=== PATIENT | male | born 1960 | race Caucasian/White ===

== ENCOUNTER 2023-01-15 09:11 | Inpatient (IN) ==
[2023-01-15] MEDS ORDERED: MoRPHine SULFATE 2 MG/ML CARP IV STA (09:38)
[2023-01-15] MEDS ORDERED: NITROGLYCERIN 2% OINTMENT 30GM TUBE EXT STA (09:38)
[2023-01-15] MEDS: SODIUM CHLORIDE 0.9% 500 ML IV SCH ×2 (09:46→17:24)
--- NOTE | 2023-01-15 09:49 | Emergency Department Note ---
Impression & Plan Unstable angina, Chest pain, OLMSTEAD (dyspnea on exertion), Abnormal ECG ED Provider Note ED Provider Note NAME: MAG MEDEROS AGE:62 SEX: Male : 1960 ARRIVES VIA: Private vehicle INFORMANT: Patient ED PROVIDER(s): Josie Jaramillo DO CHIEF COMPLAINT: Persistent chest pain HPI: This is a 62-year-old male presents emerged department due to concern for persistent chest pain which began last night around midnight. Patient states between the hours of midnight and 9 AM he took a total of 6 nitro at home. He states he was taking these approximately every hour and a half as they would provide some temporary relief however then his symptoms would return. He describes a sense of chest tightness across his entire bilateral chest wall with accompanying shortness of breath with any exertion. He denies diaphoresis, l ightheadedness, nausea or vomiting, or difficulty breathing. Patient with significant cardiac history including prior quadruple bypass performed at [facility] a little less than 3 years ago. Patient did see Dr. Curry of cardiology last week in the office states his carvedilol was increased. He had been having exertional symptoms prior to this episode however last night symptoms woke him up from sleep. No recent fevers, chills, or URI symptoms. He states he does occasionally have leg swelling however this seems to resolve with elevation of the legs. PAST MEDICAL HISTORY:See Below PAST SURGICAL HISTORY:See Below FAMILY HISTORY:See Below SOCIAL HISTORY:See Below HOME MEDICATIONS:See Below ALLERGIES:See Below VITALS:See Below PHYSICAL EXAMINATION: GENERAL: alert, well appearing, well nourished, no distress, non-toxic EYE EXAM: normal conjunctiva, PERRL and EOM's grossly intact OROPHARYNX: no exudate, no erythema, lips, buccal mucosa, and tongue normal and mucous membranes are moist NECK: supple, no nuchal rigidity, no adenopathy, non-tender LUNGS: Clear to auscultation. Normal chest wall mechanics, no w/r/r HEART: no murmurs, S1 normal and S2 normal ABDOMEN: abdomen soft, non-tender, normo-active bowel sounds, no masses, no rebound or guarding. BACK: Back is symmetrical on inspection and there is no deformity, no midline tenderness, no CVA tenderness. SKIN: no rashes, petechiae, orbruising UPPER EXTREMITIES: upper extremities are grossly normal. FROM, nml pulses b/l. LOWER EXTREMITIES: No pitting edema. FROM, nml pulses b/l. NEURO EXAM: Normal sensorium, cranial nerves II-XII grossly intact, normal speech, no facial droop,nogross weakness of arms, no gross weakness of legs. Gross sensation intact. No ataxia. Vital Signs: reviewed and remarkable Differential Diagnosis: Differential diagnoses includes but is not limited to acute coronary syndrome, pericarditis, pulmonary embolus, aortic dissection, pneumonia, pneumothorax, musculoskeletal,GERD, gi bleed, perf dehydration MEDICAL DECISION MAKING: This is a 62 yo male with significant cardiac hx who presents due to persistent chest pain and shortness of breath. Patient afebrile and VS stable. Labs drawn and sent, IV established, EKG and cxr performed and interpreted by me at bedside. Patient's EKG abnormal however no old immediately available for comparison. Patient with recent office visit to cardiology and this was reviewed at bedside and cardiology contacted given significant history and story suggestive of unstable angina. Patient given nitro and morphine for pain. After additional discussion with cardiology, decision made to begin on heparin and brilinta in preparation for cardiac cath. No criteria for Heart Alert, however given symptoms, Dr. Curry spoke with interventional cardiology. Patient and updated on results. He remained hemodynamically stable while in the ER. Consultation(s): 0950: Discussed with Dr. Curry. Recommends admission. Will review EKG and decide on heparin. 1006: Discussed with Dr. Curry again. 1030: Discussed with Dr. Booker. ER Treatment Provided: See below Diagnostics Interpreted By Me: -ECG: Normal sinus at 79, ST depression noted in 1, aVL, V5, V6, T wave inversions noted in 3, aVF, and V3, normal axis, normal QRS, QTc slightly prolonged at 488 -Cardiac Monitoring: An order was placed for continuous cardiac monitoring. The monitor shows a rate of 80 with normal sinus rhythm. -Laboratory studies: As stated above and show below. -Imaging studies: X-ray Chest: A single view study of the chest was reviewed and was negative for cardiomegaly, focal infiltrate, effusion, pulmonary edema, or wide mediastinum. Triage Nursing Note Reviewed Prior/Outside Records Reviewed - prior cardiology office visit Critical Care: Critical care of 42 min performed to assess and manage high likelihood of life- threatening unstable angina, involving labs and imaging performed with assessment to evaluate chest pain and OLMSTEAD diagnosis with frequent reassessment. This time includes bedside time, treatment discussions with patient/family/consultants, documentation time and excludes procedure time. Past Med/Surg History Medical History Asthma Diabetes mellitus, type 2 Dyslipidemia Former tobacco use HTN (hypertension) Surgical History History of coronary artery bypass graft April 2021 Social History Smoking Status: Former smoker Tobacco Type: Cigars Second Hand Exposure: No; Do You Dip or Chew Tobacco: No; Tobacco Cessation Education Requested by Patient: No Hx Alcohol Use: No Hx Substance Use: No Preferred Language: Georgian Grappler Required: No Beliefs That Will Affect Care: None Current Living Situation: Spouse Other Information That Helps Us Care for You: No Feels Safe at Home: Yes Safety Concerns: Feels Safe At This Time Assistive Devices: Denture - Upper, Glasses and Hearing Aid - Bilateral Allergies Allergies Allergy/AdvReac Type Severity Reaction Status Date / Time atorvastatin [From Lipitor] Allergy Verified 01/08/23 10:20 mold Allergy Verified 01/08/23 10:20 cedarwood AdvReac Intermediate Difficulty Verified 01/08/23 10:20 Breathing Home Meds Home Medications Medication Instructions Recorded Confirmed aspirin 81 mg chewable tablet 81 mg PO DAILY 07/12/21 01/15/23 clopidogrel 75 mg tablet (Plavix) 75 mg PO DAILY 07/12/21 01/15/23 omeprazole 20 mg capsule,delayed 20 mg PO DAILY 07/12/21 01/15/23 release rosuvastatin 20 mg tablet (Crestor) 20 mg PO HS 07/12/21 01/15/23 spironolactone 25 mg tablet 12.5 mg PO DAILY 07/12/21 01/15/23 Ligaplex PO DAILY 08/09/22 01/08/23 melatonin 10 mg capsule 10 mg PO HS PRN Sleep 08/09/22 01/15/23 albuterol sulfate 90 mcg/actuation 2 puff inhalation Q6H PRN Wheezing 11/27/22 01/15/23 aerosol inhaler lisinopril 10 mg tablet 10 mg PO HS 11/27/22 01/15/23 metformin 500 mg tablet 500 mg PO TID 11/27/22 01/15/23 [id number] 1 tab PO DAILY 11/27/22 01/15/23 tablet (Multivitamin 50 Plus tablet) carvedilol 12.5 mg tablet See Rx Instructions .Route .COMPLEX 01/15/23 01/15/23 Previous Rx's Medication Instructions Recorded nitroglycerin 0.4 mg sublingual 0.4 mg sublingual Q5M PRN chest 11/23/22 tablet pain #75 tabs Results & Data (ED) Vital Signs Vital Signs - 24 hr 01/15/23 09:24 01/15/23 09:26 01/15/23 09:25 Temperature 36.7 C Temperature Source Oral Pulse Rate 78 78 79 Pulse Rate from SpO2 Sensor 80 Pulse Rhythm Regular Pulse Strength Normal Respiratory Rate 18 19 Respiratory Effort / Characteristics Non-Labored Spontaneous Respiratory Depth Normal Blood Pressure 132/75 Blood Pressure Mean 94 Blood Pressure Position Sitting Pulse Oximetry 98 97 Oxygen Delivery Method Room Air Nasal Cannula Sepsis Recent Fever Within 48 Hours No Sepsis New/Unexplained Change in Mental Status N/A Sepsis Action Taken by Nursing No Action Required 01/15/23 09:30 01/15/23 09:36 01/15/23 09:36 Temperature Temperature Source Pulse Rate 85 78 Pulse Rate from SpO2 Sensor 77 Pulse Rhythm Pulse Strength Respiratory Rate 14 17 Respiratory Effort / Characteristics Respiratory Depth Blood Pressure 138/80 Blood Pressure Mean 99 Blood Pressure Position Pulse Oximetry 99 Oxygen Delivery Method Sepsis Recent Fever Within 48 Hours Sepsis New/Unexplained Change in Mental Status Sepsis Action Taken by Nursing 01/15/23 10:00 01/15/23 10:00 01/15/23 10:30 Temperature Temperature Source Pulse Rate 73 Pulse Rate from SpO2 Sensor 73 Pulse Rhythm Pulse Strength Respiratory Rate 15 Respiratory Effort / Characteristics Respiratory Depth Blood Pressure 120/84 126/78 Blood Pressure Mean 96 94 Blood Pressure Position Pulse Oximetry 96 Oxygen Delivery Method Sepsis Recent Fever Within 48 Hours Sepsis New/Unexplained Change in Mental Status Sepsis Action Taken by Nursing 01/15/23 10:30 Temperature Temperature Source Pulse Rate 80 Pulse Rate from SpO2 Sensor 80 Pulse Rhythm Pulse Strength Respiratory Rate 18 Respiratory Effort / Characteristics Respiratory Depth Blood Pressure Blood Pressure Mean Blood Pressure Position Pulse Oximetry 98 Oxygen Delivery Method Sepsis Recent Fever Within 48 Hours Sepsis New/Unexplained Change in Mental Status Sepsis Action Taken by Nursing Laboratory Data 01/15/23 09:27 01/15/23 09:27 Lab Results 01/15/23 01/15/23 01/15/23 Range/Units 09:27 09:27 09:27 WBC 8.92 (4.8-10.8) K/ul RBC 5.07 (4.70-6.10) M/uL Hgb 14.3 (14.0-18.0) g/dl Hct 42.1 (42.0-52.0) % MCV 83.0 (80.0-100.0) fL MCH 28.2 (25.0-34.0) pg MCHC 34.0 (32.0-36.0) g/dL RDW Std Deviation 40.3 (36.4-46.3) fL RDW Coeff of Holley 13.4 (11.5-14.5) % Plt Count 200 (130-400) K/uL MPV 10.6 (9.4-12.4) fL Immature Gran % (Auto) 0.3 % Neut % (Auto) 54.6 % Lymph % (Auto) 30.7 % Piute % (Auto) 7.1 % Eos % (Auto) 6.5 % Baso % (Auto) 0.8 % Neut # (Auto) 4.87 (1.40-6.50) K/uL Lymph # (Auto) 2.74 (1.2-3.4) K/uL Piute # (Auto) 0.63 H (0.11-0.59) K/uL Eos # (Auto) 0.58 H (0-0.50) K/uL Baso # (Auto) 0.07 (0-0.2) K/uL Immature Gran # (Auto) 0.03 (0.01-0.20) K/uL PT (9.0-12.0) Seconds INR (0.9-1.1) Sodium 136 (136-145) mmol/L Potassium 4.7 (3.5-5.1) mmol/L Chloride 103 (98-107) mmol/L Carbon Dioxide 23 (21-32) mmol/L Anion Gap 10 (3-11) BUN 20 (6-23) mg/dl Creatinine 1.13 (0.6-1.4) mg/dl Est Cr Clr Drug Dosing 63.9 ml/min Est GFR ( Amer) 79.2 ml/min Est GFR (Non-Af Amer) 68.3 ml/min BUN/Creatinine Ratio 17.7 (10-20) Glucose 233 H (70-99(Fasting)) mg/dl Calcium 9.3 (8.6-10.3) mg/dl Magnesium 1.8 (1.7-2.4) mg/dl Total Bilirubin 0.5 (0.2-1.0) mg/dl AST 36 (13-39) U/L ALT 44 (7-52) U/L Alkaline Phosphatase 33 L (34-104) U/L Troponin I High Sens 274.4 H* (0-20) pg/ml Total Protein 7.0 (6.0-8.3) gm/dl Albumin 4.5 (3.4-5.0) gm/dl Globulin 2.5 (2.5-4.0) gm/dl Albumin/Globulin Ratio 1.8 (0.9-2) Lipase 45 (11-82) U/L TSH 2.538 (0.300-4.500) uIu/ml SARS-CoV-2, RNA, NAAT (NEGATIVE) 01/15/23 01/15/23 Range/Units 09:27 10:48 WBC (4.8-10.8) K/ul RBC (4.70-6.10) M/uL Hgb (14.0-18.0) g/dl Hct (42.0-52.0) % MCV (80.0-100.0) fL MCH (25.0-34.0) pg MCHC (32.0-36.0) g/dL RDW Std Deviation (36.4-46.3) fL RDW Coeff of Holley (11.5-14.5) % Plt Count (130-400) K/uL MPV (9.4-12.4) fL Immature Gran % (Auto) % Neut % (Auto) % Lymph % (Auto) % [place] % (Auto) % Eos % (Auto) % Baso % (Auto) % Neut # (Auto) (1.40-6.50) K/uL Lymph # (Auto) (1.2-3.4) K/uL [place] # (Auto) (0.11-0.59) K/uL Eos # (Auto) (0-0.50) K/uL Baso # (Auto) (0-0.2) K/uL Immature Gran # (Auto) (0.01-0.20) K/uL PT 11.6 (9.0-12.0) Seconds INR 1.1 (0.9-1.1) Sodium (136-145) mmol/L Potassium (3.5-5.1) mmol/L Chloride (98-107) mmol/L Carbon Dioxide (21-32) mmol/L Anion Gap (3-11) BUN (6-23) mg/dl Creatinine (0.6-1.4) mg/dl Est Cr Clr Drug Dosing ml/min Est GFR ( Amer) ml/min Est GFR (Non-Af Amer) ml/min BUN/Creatinine Ratio (10-20) Glucose (70-99(Fasting)) mg/dl Calcium (8.6-10.3) mg/dl Magnesium (1.7-2.4) mg/dl Total Bilirubin (0.2-1.0) mg/dl AST (13-39) U/L ALT (7-52) U/L Alkaline Phosphatase (34-104) U/L Troponin I High Sens (0-20) pg/ml Total Protein (6.0-8.3) gm/dl Albumin (3.4-5.0) gm/dl Globulin (2.5-4.0) gm/dl Albumin/Globulin Ratio (0.9-2) Lipase (11-82) U/L TSH (0.300-4.500) uIu/ml SARS-CoV-2, RNA, NAAT NEGATIVE (NEGATIVE) Administered Medications Carvedilol (Carvedilol 3.125 Mg Tab) 3.125 mg PO BIDM HEIKE Stop: 02/14/23 16:59 Last Admin: 01/15/23 17:27 Dose: 3.125 mg Documented By: ARVIND Insulin Aspart (Insulin Aspart Per Unit Charge) 0 units SC ACHS HEIKE Stop: 02/14/23 16:21 Last Admin: 01/15/23 20:56 Dose: 1 units Documented By: VERENA Co-signed By: JULIANNA Admin: 01/15/23 17:04 Dose: Not Given Documented By: Admin: 01/15/23 17:03 Dose: Not Given Documented By: ARVIND Insulin Glargine (Lantus Per Unit Charge) 7 units SQ BID HEIKE Stop: 02/14/23 20:59 Last Admin: 01/15/23 20:56 Dose: 7 units Documented By: VERENA Co-signed By: JULIANNA Melatonin (Melatonin 3 Mg Tab) 9 mg PO HS PRN PRN Reason: Sleep Stop: 02/14/23 16:34 Last Admin: 01/15/23 20:55 Dose: 9 mg Documented By: VERENA Discontinued Medications Carvedilol (Carvedilol 12.5 Mg Tab) 12.5 mg PO QDD HEIKE Stop: 02/14/23 16:44 Last Admin: 01/15/23 16:58 Dose: Not Given Documented By: ARVIND Fentanyl Citrate (Fentanyl Citrate Pf 100 Mcg/2 Ml Vial) Confirm Administered Dose 100 mcg .ROUTE .STK-MED ONE Stop: 01/15/23 11:29 Last Admin: 01/15/23 13:39 Dose: 25 mcg Documented By: MERLE Heparin Sodium (Porcine) (Heparin Sod (Porcine) 1000 Unit/Ml) 5,000 units IV NOW ONE Stop: 01/15/23 10:09 Last Admin: 01/15/23 10:29 Dose: 5,000 units Documented By: VERENA(2) Co-signed By: DORA Heparin Sodium (Porcine) (Heparin (Porcine) 1000 Unit/Ml 10 Ml (Histology Specialist Use Only)) Confirm Administered Dose 10,000 units .ROUTE .STK-MED ONE Stop: 01/15/23 11:29 Last Admin: 01/15/23 13:40 Dose: 4,500 units Documented By: MERLE Heparin Sodium/Sodium Chloride (Heparin In Nss Infusion 1000 Unit/500 Ml (2 U/Ml) Bag) Confirm Administered Dose 3,000 units IV .STK-MED ONE Stop: 01/15/23 11:30 Last Admin: 01/15/23 13:42 Dose: 3,000 units Documented By: MERLE Sodium Chloride (Nss) 500 mls @ 80 mls/hr IV .[id number] [facility] Stop: 02/14/23 09:44 Last Admin: 01/15/23 17:24 Dose: Not Given Documented By: Infusion: 01/15/23 17:24 Dose: 0 mls/hr Documented By: Admin: 01/15/23 09:46 Dose: 80 mls/hr Documented By: NANCY Midazolam HCl (Midazolam Hcl 1 Mg/Ml 2ml Vial) Confirm Administered Dose 2 mg .ROUTE .STK-MED ONE Stop: 01/15/23 11:30 Last Admin: 01/15/23 13:41 Dose: 1 mg Documented By: MERLE Morphine Sulfate (Morphine Sulfate 2 Mg/Ml Carp) 2 mg IV NOW STA Stop: 01/15/23 09:39 Last Admin: 01/15/23 09:48 Dose: 2 mg Documented By: NANCY Morphine Sulfate (Morphine Sulfate 4 Mg/Ml 1 Ml Carp\Vial) 4 mg IV NOW STA Stop: 01/15/23 10:31 Last Admin: 01/15/23 10:52 Dose: 4 mg Documented By: VERENA(2) Nicardipine HCl (Nicardipine Hcl Inj 2.5 Mg/Ml 10 Ml Amp) Confirm Administered Dose 25 mg .ROUTE .STK-MED ONE Stop: 01/15/23 11:29 Last Admin: 01/15/23 13:41 Dose: 25 mg Documented By: MERLE Nitroglycerin (Nitroglycerin 2% Ointment 30gm Tube) 1 inch EXT NOW STA Stop: 01/15/23 09:39 Last Admin: 01/15/23 09:48 Dose: 1 inch Documented By: NANCY Nitroglycerin/Dextrose (Nitroglycerin/D5w 100mcg/Ml 20ml Syr) Confirm Admin istered Dose 2,000 mcg .ROUTE .STK-MED ONE Stop: 01/15/23 11:30 Last Admin: 01/15/23 13:42 Dose: 2,000 mcg Documented By: MERLE Ticagrelor (Ticagrelor 90 Mg Tab) 180 mg PO ONE ONE Stop: 01/15/23 10:09 Last Admin: 01/15/23 10:28 Dose: 180 mg Documented By: AMB(2) Imaging Data Radiologist's Impression: Chest X-Ray 01/15/23 09:38 XR chest 1V portable CLINICAL HISTORY: Atypical chest pain. COMPARISON STUDY: Chest radiograph October 23, 2021. Chest CT July 12, 2020. FINDINGS: There are median sternotomy wires and mediastinal surgical clips. Lung volumes are normal. Lungs are clear. There is no pneumothorax or pleural effusion. Cardiac size is stable. Mediastinal contours are normal. There is no evidence for pulmonary edema. IMPRESSION: No acute cardiopulmonary findings. ACT 112: Negative or not required by law. Electronically signed by: Franklin Murillo M.D. 01/15/2023 10:07 AM Discharge Plan Visit Data Chief Complaint: Chest Pain Stated Complaint: CHEST PAIN ED Provider: Josie Jaramillo Discharge Problem: Unstable angina, Chest pain, OLMSTEAD (dyspnea on exertion), Abnormal ECG Patient Disposition: Admitted As Inpatient Discharge Instructions Interventions: ED Discharge Assessment Last Done: 01/15/23 11:32
[2023-01-15 10:08] LABS: Basophils # (auto) 0.07 K/uL (0-0.2); Basophils % (auto) 0.8 %; Eosinophils # (auto) 0.58 K/uL (0-0.50); Eosinophils % (auto) 6.5 %; Hematocrit (blood only) 42.1 % (42.0-52.0); Hemoglobin 14.3 g/dl (14.0-18.0); Immature Granulocytes # (auto) 0.03 K/uL (0.01-0.20); Immature Granulocytes % (auto) 0.3 %; Lymphocytes # (auto) 2.74 K/uL (1.2-3.4); Lymphocytes % (auto) 30.7 %; Mean Corpuscular Hemoglobin 28.2 pg (25.0-34.0); Mean Platelet Volume 10.6 fL (9.4-12.4); Monocytes # (auto) 0.63 K/uL (0.11-0.59); Monocytes % (auto) 7.1 %; Neutrophils # (auto) 4.87 K/uL (1.40-6.50); Neutrophils % (auto) 54.6 %; Platelet Count 200 K/uL (130-400); RDW Coefficient of Variation 13.4 % (11.5-14.5); RDW Standard Deviation 40.3 fL (36.4-46.3); Red Blood Count 5.07 M/uL (4.70-6.10); White Blood Count 8.92 K/ul (4.8-10.8)
[2023-01-15] MEDS ORDERED: HEPARIN SOD (PORCINE) 1000 UNIT/ML IV ONE (10:08)
[2023-01-15] MEDS ORDERED: TICAGRELOR 90 MG TAB PO ONE (10:08)
--- NOTE | 2023-01-15 10:08 | XRay Report ---
XR chest 1V portable CLINICAL HISTORY: Atypical chest pain. COMPARISON STUDY: Chest radiograph October 23, 2021. Chest CT July 12, 2020. FINDINGS: There are median sternotomy wires and mediastinal surgical clips. Lung volumes are normal. Lungs are clear. There is no pneumothorax or pleural effusion. Cardiac size is stable. Mediastinal co ntours are normal. There is no evidence for pulmonary edema. IMPRESSION: No acute cardiopulmonary findings. ACT 112: Negative or not required by law. Electronically signed by: Franklin Murillo M.D. 01/15/2023 10:07 AM
[2023-01-15 10:27] LABS: Albumin Globulin Ratio 1.8 (0.9-2); Albumin Level 4.5 gm/dl (3.4-5.0); BUN Creatinine Ratio 17.7 (10-20); Bilirubin,Total 0.5 mg/dl (0.2-1.0); Calcium 9.3 mg/dl (8.6-10.3); Creatinine Clr Calc Pharmacy 63.9 ml/min; Est GFR (African American) 79.2 ml/min; Est GFR (Non-African American) 68.3 ml/min; Globulin 2.5 gm/dl (2.5-4.0); Magnesium 1.8 mg/dl (1.7-2.4); Potassium 4.7 mmol/L (3.5-5.1)
[2023-01-15] MEDS ORDERED: MoRPHine SULFATE 4 MG/ML 1 ML CARP\\VIAL IV STA (10:30)
--- NOTE | 2023-01-15 10:32 | History & Physical Report ---
Date of Service January 15, 2023 Assessment & Plan (1) Unstable angina: Plan: Unstable Angina - EKG: nsr V5/V6, aVL, I ST depressions with new T wave inversions, Qtc 488 -Previously with anginal symptoms with exertion that resolved with rest Symptoms occurred at rest last night would improve from a 04/22 to 4 with nitro approximately hourly but did not completely resolve. Initially had an episode of sweating, no further sweats/shortness of breath after initial e pisode. - initial troponin is elevated at 274, trended. Repeat echo pending Pending cardiac catheterization for unstable angina. Interventional cardiology Dr. Hickman consulted. Patient is loaded with Brilinta, and received heparin bolus with drip deferred. Nitropatch placed, morphine x2 given for pain. Hemoglobin 14.3 Multivessel CAD as otherwise noted (2) History of coronary artery bypass graft: Plan: Multivessel CAD History of CABGx4 05/11/2020 [facility] records reviewed. Left ADAMA to LAD, saphenous vein graft to obtuse marginal, saphenous graft to ramus intermedius, saphenous vein graft to diagonal w/ Dr. Pineda [facility], 1928–1983 Cardiology. Prior catheterization report not available in records at time of admission Stress echo 08/2022 EF 40-45%, moderate global hypokinesis with ST changes and pain after several minutes. Black to be consistent with LV systolic dysfunction moderate global ischemia from latent disease. Has not followed as outpatient by cardiology with medical management. Does not tolerate Imdur. Carvedilol recently uptitrated to 25 mg morning, 12.5 mg evening CABG records are from [facility], multiple efforts have been made to obtain records in the past Aspirin/Plavix were continued post CABG. No history of PCI/stents per discussion with the patient. Per patient's takes these in the morning and took this morning. Loaded with Brilinta in ER, final antiplatelet recommendations pending cath Prior to admission patient has been rosuvastatin, spironolactone, carvedilol which was recently uptitrated, and quinapril which was recently converted to lisinopril 10 mg. Patient took his morning medications which include metformin, carvedilol, spironolactone 12.5 mg. Takes lisinopril at night. (3) Asthma: Plan: Follows with pulmonology reports childhood history of asthma PFTs 01/2022: FVC 3.0 (69% predicted), FEV1 2.23 (68% predicted), FEV1/FVC 75%, DLCO 75%, TLC 70%, RV/TLC 123%. Consistent with mild restrictive disease, no COPD/obstruction, and air trapping present Past CT/CTA 2019 without acute abnormalities Mild to moderate restrictive lung disease, exertional shortness of breath likely predominantly due to cardiac disease Patient did not get symptomatic benefit from Symbicort or BrezTri. No wheezing on admission (4) Diabetes mellitus, type 2: Plan: History of type II DM on metformin Last A1c 7.0% Switch to basal bolus weight-based while inpatient. Lantus 7 units twice daily, dose reduced to 4 units if n.p.o. CF 55, carb ratio 20 Goal BSG 530879 Heart healthy, low-sodium, DM 2 diet (5) HTN (hypertension): Plan: Carvedilol, lisinopril, spironolactone as otherwise noted. Normotensive on admission. (6) Dyslipidemia: Plan: Continue rosuvastatin as otherwise noted Plan DVT prophylaxis: SCDs Diet: Low-salt, heart healthy, DM 2 Disposition: PCU CODE STATUS: Full code History of Present Illness Primary Care Provider: Obey Mcneal is a 62-year-old male with a past medical history of CABG x4, DM 2, hypertension, asthma, shortness of breath who experienced constant chest pain for around 9 hours prior to presentation to the ER which improved temporarily but did not resolve with nitro and then recurred. He has taken 9 nitro since midnight. Hx 2020 Left ADAMA to LAD, saphenous vein graft to obtuse marginal, saphenous graft to ramus intermedius, saphenous vein graft to diagonal w/ Dr. Pineda [facility]. 11pm-12 last night developed chest pain in right and left chest which improves but did resolve with nitro. Went from 7/10, improved with nitro to ~4 then would return after ~1 hour. +sweating/diaphoresis with episode earlier in the night, but not this morning or in ER. Leading up to this in the previous few months when he carries things or exerts himself has had intermittent chest tighness, and sometimes shortness of breath. While cutting his grass he would usually stop 2-3 times due to the symptoms, and then they improved over several minutes to half hour overall the symptoms seem to be worse in the last 2 to 3 months. No syncope or presyncope. Chest pain had always gone away with rest up until this past evening. Has a history of intermittent asthma. Trialed BrezTri which did not help much. Was told as a child 'had smaller lungs.' Follows with pulmonology. Does have some nighttime snoring/wheezing which improved after bipass. Polysomnography x2 did not show sleep apnea. Intermittent mild pedal edema which improves with putting his legs up. Generally tries to follow a low salt diet, sometimes has a few chips at night. Denies orthopnea. DM: Last A1C 7.0%. Took metformin this morning. Generally patient reports he does okay and is just at goal but it is a struggle "everything that taste good is bad for you ". Medical History: Reviewed Medications: Reviewed. Recently switched quinapril to lisinopril 10 mg due to availability which he takes in the evening. Recently uptitrated carvedilol to 12.5 mg p.m./25 mg a.m. from 12.5 mg twice daily. Patient had not tolerated Imdur in the past. Surgical History: Reviewed Family history: Reviewed Allergies: Reviewed Social History: Had 1x cigar yesterday, but no other tobacco use in 3 years. No EtoH use. Former chew use, quit in 1989. Code Status: Full Allergies Allergy/AdvReac Type Severity Reaction Status Date / Time atorvastatin [From Lipitor] Allergy Verified 01/08/23 10:20 mold Allergy Verified 01/08/23 10:20 cedarwood AdvReac Intermediate Difficulty Verified 01/08/23 10:20 Breathing Home Medications Medication Instructions Recorded Confirmed Type aspirin 81 mg chewable tablet 81 mg PO DAILY 07/12/21 01/15/23 History clopidogrel 75 mg tablet (Plavix) 75 mg PO DAILY 07/12/21 01/15/23 History omeprazole 20 mg capsule,delayed 20 mg PO DAILY 07/12/21 01/15/23 History release rosuvastatin 20 mg tablet (Crestor) 20 mg PO HS 07/12/21 01/15/23 History spironolactone 25 mg tablet 12.5 mg PO DAILY 07/12/21 01/15/23 History Ligaplex PO DAILY 08/09/22 01/08/23 History melatonin 10 mg capsule 10 mg PO HS PRN Sleep 08/09/22 01/15/23 History nitroglycerin 0.4 mg sublingual 0.4 mg sublingual Q5M PRN chest 11/23/22 01/15/23 Rx tablet pain #75 tabs albuterol sulfate 90 mcg/actuation 2 puff inhalation Q6H PRN Wheezing 11/27/22 01/15/23 History aerosol inhaler lisinopril 10 mg tablet 10 mg PO HS 11/27/22 01/15/23 History metformin 500 mg tablet 500 mg PO TID 11/27/22 01/15/23 History nkcislmhmzyi-vnjrlmcx-depfvr 1 tab PO DAILY 11/27/22 01/15/23 History tablet (Multivitamin 50 Plus tablet) carvedilol 12.5 mg tablet See Rx Instructions .Route .COMPLEX 01/15/23 01/15/23 History Past Med/Surg History Medical History (Updated 01/15/23 @ 11:30 by Jonathan Booker MD) Asthma Diabetes mellitus, type 2 Dyslipidemia Former tobacco use HTN (hypertension) Surgical History History of coronary artery bypass graft April 2021 Social History Smoking Status: Current some day smoker Tobacco Type: Cigars Hx Substance Use: No Preferred Language: Mauritanian Feels Safe at Home: Yes Review of Systems Review of Systems: All systems reviewed & are unremarkable except as noted in HPI & below Physical Exam Physical Exam: General: A&Ox3. NAD. Cooperative. HEENT: Atraumatic, normocephalic. Vision and hearing grossly intact Pulm: CTAB A&P. -wheezes, -rales, -rhonchi. Symmetrical chest rise. No increased work of breathing. No respiratory distress. Cardiac: RRR, -mrg. Radial pulses intact and symmetrical. No pedal edema. Abdominal: Nontender, nondistended, soft. BS present. Extremities: Technical Services Assistant strength, ankle dorsiflexion/plantarflexion grossly intact with symmetrical strength. Sensation intact to soft touch in hands and feet bilaterally. No pedal edema. Results & Data Results & Data Vital Signs (Past 12 Hours) Vital Signs Temp Pulse Resp BP Pulse Ox O2 Del Method 01/15/23 09:36 78 17 99 01/15/23 09:36 138/80 01/15/23 09:30 85 14 01/15/23 09:25 79 19 97 01/15/23 09:26 78 01/15/23 09:24 36.7 C 78 18 132/75 98 Room Air, Nasal Cannula PG Care Time/CCT Total # of Minutes Spent Total Time Spent with Patient: Total time spent is greater than 50% in coordination of care (as documented) at patient's floor/unit and/or counseling patient: Coding Level of Care Code 68262 INT INP/OBS CARE 375MIN Diagnoses Unstable angina I20.0 History of coronary artery bypass graft Z95.1 Asthma J45.909 Diabetes mellitus, type 2 E11.9 HTN (hypertension) I10 Dyslipidemia E78.5
--- NOTE | 2023-01-15 10:33 | Electrocardiogram Report ---
Test Reason : Blood Pressure : / mmHG Vent. Rate : 079 BPM Atrial Rate : 079 BPM P-R Int : 160 ms QRS Dur : 088 ms QT Int : 426 ms P-R-T Axes : 070 -07 166 degrees QTc Int : 488 ms Normal sinus rhythm Minor ST elevation in Inferior leads Abnormal ECG No previous ECGs available Confirmed by Obey Curry ([id number]) on 01/15/2023 10:33:09 AM Referred By: ED Confirmed By:Obey Curry
[2023-01-15 10:36] LABS: INR 1.1 (0.9-1.1); Prothrombin Time 11.6 Seconds (9.0-12.0)
[2023-01-15 10:37] LABS: Troponin I High Sensitivity 274.4 pg/ml (0-20)
[2023-01-15] MEDS ORDERED: fentaNYL citrate PF 100 MCG/2 ML VIAL ONE (11:28)
[2023-01-15] MEDS ORDERED: HEPARIN (PORCINE) 1000 UNIT/ML 10 ML (CATH LAB USE ONLY) ONE (11:28)
[2023-01-15] MEDS ORDERED: niCARdipine HCL INJ 2.5 MG/ML 10 ML AMP ONE (11:28)
[2023-01-15] MEDS ORDERED: NITROGLYCERIN/D5W 100MCG/ML 20ML SYR ONE (11:29)
[2023-01-15] MEDS ORDERED: MIDAZOLAM HCL 1 MG/ML 2ML VIAL ONE (11:29)
--- NOTE | 2023-01-15 13:30 | Post Anesthesia Assessment ---
Date of Service January 15, 2023 Post Sedation Assessment Vital Signs Temp Pulse Pulse Resp BP BP Pulse Ox 01/15/23 13:10 90 18 141/103 H 98 01/15/23 10:30 80 18 98 01/15/23 10:30 126/78 01/15/23 10:00 73 15 96 01/15/23 10:00 120/84 01/15/23 09:36 78 17 99 01/15/23 09:36 138/80 01/15/23 09:30 85 14 01/15/23 09:25 79 19 97 01/15/23 09:26 78 01/15/23 09:24 36.7 C 78 18 132/75 98 O2 Del Method 01/15/23 13:10 Room Air 01/15/23 10:30 01/15/23 10:30 01/15/23 10:00 01/15/23 10:00 01/15/23 09:36 01/15/23 09:36 01/15/23 09:30 01/15/23 09:25 01/15/23 09:26 01/15/23 09:24 Room Air, Nasal Cannula Recovery Score Activity: Moves 4 extremities Respiration: Deep Breath/Cough Circulation: +/-20% PreAnes Value Consciousness: Fully Awake Oxygen Saturation: > 92% On Room Air Post Anesthesia Score: 10 Discharge Sedation Level of Care: Fast Track Phase II Post Sedation Plan On clinical assessment, the patient appears to have tolerated the sedation without complications. Patient is recovering as anticipated. Patient will continue to be monitored by nursing and may be discharged when sedation discharge criteria are met per below protocol. Upon Completions of procedure up to 15 minutes continue every 5 minute vital signs and the P.A.R. score; then discharge to a Phase I or Fast Track to Phase II per the following guidelines: * Discharge Patient to appropriate Phase II area if PAR is 8 or greater or return to pre- procedure baseline. The post - procedure orders will be as directed. * If PAR score is less than 8 or not return to pre-procedure baseline then patient will follow Phase I monitoring till PAR is reached for Phase II. The Phase I may be done in procedure room or may call to secure a Phase I area. * If naloxone or flumazenil are used for reversal, hold in Phase I for continued monitoring from when last reversal dose was given for a minimum of 60 minutes or longer pending the nurse and/or physician discretion of patient condition before discharge to Phase II. Please call the Sedation Physician to re-evaluate and complete post-note for discharge to Phase II area. Do NOT discharge from procedure sedation or Phase 1 until post- sedation evaluation note is complete by procedure /sedation MD Sedation Discharge Instructions to be given to the patient at discharge to home. [facility] Procedure Codes (Charges) Indication for Procedure Indication for procedure: nstemi Sedation/Anesthesia Procedure 1: Sedation/Anesthesia: 84643 Mod Sedation by the same physician;Init15 Min Child Age 5 & Up Total Sedation Time (minutes): 63 Procedure 2: Sedation/Anesthesia: 40226 Mod Sedation by the same physician; Ea [id number] Minutes (Additional 48 minutes) Total Sedation Time (minutes): 63
--- NOTE | 2023-01-15 13:42 | Cardiac Catheterization ---
ACC Data: Filter Filler Cardiac Status Clinical evaluation leading to the procedure CAD Presenation: Non STEMI Anginal Classification: CCS IV Heart Failure: No Cardiogenic Shock within 24 Hours: No Cardiac Arrest within 24 Hours: No Imaging Studies Past 6 Months: Yes Stress Echocardiogram: Yes - Positive STEMI OR Non-STEMI Symptom Onset Date: 01/15/23 Symptom Onset Time: 07:00 Coronary Anatomy Dominant: Co-Dominant Left Main (% Stenosis): Normal LAD (% Stenosis): Mid (Moderate) D1 (% Stenosis): Proximal (80%) Circumflex (% Stenosis): Normal OM1 (% Stenosis): Proximal (99%) L PL1 (% Stenosis): Normal L PDA (% Stenosis): Normal RCA (% Stenosis): Proximal and Mid (100%) R PDA (% Stenosis): Normal Ramus (% Stenosis): Ostial (100%) Grafts - LAD (%): Ostial (Diagonal SVG 100%) and Normal Grafts - Circumflex (%): Ostial (100%) Grafts - Ramus (%): Ostial (100%) Diagnostic Physicians Name: Micah Hickman MD, PhD Closure Device Percutaneous Entry Location: Femoral Closure Device: Angio-Seal Recommendations: Medical Therapy and/or Counseling and PCI without planned CABG PCI Indication: PCI for high risk Non-JORGE Lesion Segment Name: Proximal OM Culprit Artery: Yes Stenosis Prior to Rx (%): 99 Chronic Total Occlusion: No Pre-Procedure EARL Flow: 1 Previously Treated Lesion: No Lesion Complexity: Non-High/Non-C Lesion Length (mm): 10 mm Thrombus Present: Yes (Probable) Bifurcation Lesion: No Guidewire Across Lesion: Yes Cardiac Cath Procedure Full Procedure Date January 15, 2023 Pre-Procedure Diagnosis Pre-Procedure Diagnosis: Non STEMI AUC Score AUC Score: 07 Post-Procedure Diagnosis Post-Procedure Diagnosis: Severe CAD and Successful PCI Procedure(s) Performed Procedure(s) Performed: Coronary Angiography, Drug Eluting Stent, Ultrasound Guided Vascular Access, Aortography and Bypass Graft Angiography Casing Tester Micah Hickman MD, PhD Estimated Blood Loss Estimated Blood Loss: 15 ml Medication(s) Medication(s): Fentanyl, Heparin, Lidocaine 1% and Versed Summary of Findings Brief description: Patient was brought to the cardiac catheterization suite where he was shaved and prepped in a sterile fashion. Sedated using IV Versed and fentanyl. Soft tissues of the right groin were anesthetized using 10 mils of 1% Xylocaine. Using the ultrasound for guidance (image saved), the right femoral artery was accessed and a 5 Jordanian femoral artery sheath was placed. All catheters were advanced and exchanged over a 0.035 J-tip wire. Left coronary angiography was performed in orthogonal views with a 5 Jordanian JL 4 diagnostic catheter. Right coronary angiography performed in orthogonal views with a 5 Jordanian JR4 diagnostic catheter. CABRALES to LAD bypass graft angiography was performed with a 5 Jordanian IM catheter. Attempts to engage the SVG's were performed with a 5 Jordanian JR4, 5 Jordanian JR 5, 5 Jordanian LCB, and a 5 Jordanian multipurpose 1 diagnostic catheter. These were all unsuccessful. Supravalvular aortography was performed with a 5 Jordanian pigtail catheter. Diagnostic catheters were removed and decision was made to perform PCI of the obtuse marginal branch. 5 Jordanian femoral artery sheath was exchanged for a 6 Jordanian femoral artery sheath. The ACT was checked and additional heparin was provided as needed to maintain therapeutic ACT. A 6 Jordanian EBU 3.5 guide catheter was used to engage the left main coronary. Coronary lesion was crossed using a BMW universal guidewire which was then positioned distally. Lesion was predilated using a 2.0 x 12 mm mini trek balloon inflated up to 14 jaime. Lesion was stented using a 2.5 x 15 mm Erick drug-eluting stent deployed at 14 jaime. The stent was postdilated using a 2.5 x 8 mm trek noncompliant balloon inflated up to 20 jaime. Multiple times throughout the stented segment. Lean [employer] Sigma Senior Specialist angiography was performed after the balloon was removed. The guidewire was then removed. Final angiographic evaluation was performed in orthogonal views. The guide catheter was then removed over the J-wire. Limited right femoral artery angiography was performed to evaluate for closure. Findings were favorable, therefore, the femoral artery sheath was exchanged for a 6 Jordanian Angio-Seal closure device. This was deployed in the recommended fashion. We obtained immediate hemostasis and the patient remained hemodynamically stable. He was returned to the recovery area. This ended the case. Coronary and bypass graft angiography findings: LMT: Large-caliber vessel bifurcating into the LAD and circumflex. Relatively short without significant disease. LAD: This is a large caliber and transapical vessel. Provides a medium caliber long first diagonal which has diffuse disease proximally is 70 to 80% stenosis. The mid LAD has diffuse disease. There is competitive flow noted in the distal vessel. Also noted is a late filling long very small caliber vessel which likely represents a ramus or a high first diagonal. This is chronically occluded at its ostium. It fills via left to left collateralization. LCx: Large caliber and probably codominant. There appears to be several small caliber obtuse marginal branches. The first decent caliber OM has a 99% stenosis proximally and the distal vessel fills very slowly (at best EARL I) with some staining distally. This is the culprit for the non-ST elevation [place]. The AV groove circumflex remains large as it travels distally where it provides a multi branching posterolateral and a small caliber long PDA. RCA: Medium caliber vessel. Provides RV marginal branches but is likely 100% occluded after the first major branch. There seems to be a small caliber PDA wh ich fills distally via right to right collateralization. CABRALES to LAD: The very large caliber and widely patent graft. Distal anastomosis on the distal LAD. This demonstrates antegrade flow to the distal LAD which wraps the apex and provides small branches. There is also retrograde flow back to the level of the mid LAD which provides several decent sized septal branches and is without significant disease. SVG to OM: Likely occluded. SVG to diagonal: Likely occluded. SVG to ramus: Likely occluded. Supravalvular aortography: The aorta appears significantly enlarged. There is no significant aortic insufficiency. Normal anatomy arch Cannot identify any patent SVG grafts. Clips from grafts are visible PCI of obtuse marginal: 0% residual stenosis post PCI PCI reveals a large caliber branching obtuse marginal. Mid segment has residual stenosis of 40%. The remainder of the vessel has no angiographically significant disease. EARL-3 flow post PCI No evidence of dissection or perforation post PCI Summary: 1. Severe [place] vessel coronary disease as described 2. CABRALES to LAD patent, 3 SVGs appear to be occluded. 3. Subtotally occluded obtuse marginal appears to be the culprit for non-ST elevation [place] 4. Successful PCI of the obtuse marginal branch with implantation of a 2.5 x 15 mm drug-eluting stent. Good angiographic results. 5. Continue dual antiplatelet therapy with aspirin and Plavix indefinitely. 6. Continue guideline directed medical therapy for secondary prevention of coronary disease including; low-dose aspirin, high intensity statin therapy, beta-veronica, and BROWN inhibitor/ARB as tolerated. Hemodynamics Rest Ao:: 134/89 mmHg Final Ao: 163/91 mmHg LV: Not performed Recommendations Recommendations: Medical Therapy and/or Counseling and PCI without planned CABG Radiation Exposure (mGy) 2630 mGy, total fluoroscopy time 20.5 minutes Contrast (mls) 300 mL Procedural Complication(s) None Disposition PCU I attest to the content of the Intraoperative Record and any orders documented therein. Any exceptions are noted below. [facility] Card Cath Procedure Codes Cardiac Catheterization Procedure 1: Cardiovascular Cath Procedures: 83426 Coronaries and Grafts/IM (venous & atrial) Procedure 2: Cardiovascular Cath Procedures: 79774 Supravalvular Aortography (Injection during Cardiac Cath) Therapeutic Services & Ancillary Procedure 1: Cardiovascular Tx and Anc Procedures: 38515 Ultrasonic Guidance Vascular Access Moderate Sedation Procedure 1: Sedation/Anesthesia: 22537 Mod Sedation by the same physician;Init15 Min Child Age 5 & Up (Initial 15-minute (total 63 min)) Procedure 2: Sedation/Anesthesia: 56669 Mod Sedation by the same physician; Ea [id number] Minutes (Additional 48 min (total 63 min)) Stenting Procedure 1: Cardiovascular Stent Procedures: 41346 Perc transluminal revascularization of acute sub/total occl, aMI (OM) PG Care Time/CCT Total # of Minutes Spent Total Time Spent with Patient: Total time spent is greater than 50% in coordination of care (as documented) at patient's floor/unit and/or counseling patient:
--- NOTE | 2023-01-15 15:10 | Electrocardiogram Report ---
Test Reason : Blood Pressure : / mmHG Vent. Rate : 076 BPM Atrial Rate : 076 BPM P-R Int : 166 ms QRS Dur : 086 ms QT Int : 414 ms P-R-T Axes : 074 -05 173 degrees QTc Int : 465 ms Poor data quality, interpretation may be adversely affected Normal sinus rhythm Abnormal ECG When compared with ECG of 15-JAN-2023 09:21, No significant change was found Confirmed by Obey Curry ([id number]) on 01/15/2023 3:10:03 PM Referred By: REFERRED SELF Confirmed By:Obey Curry
--- NOTE | 2023-01-15 15:11 | Electrocardiogram Report ---
Test Reason : Blood Pressure : / mmHG Vent. Rate : 091 BPM Atrial Rate : 091 BPM P-R Int : 182 ms QRS Dur : 086 ms QT Int : 390 ms P-R-T Axes : 080 -43 -51 degrees QTc Int : 479 ms Normal sinus rhythm Left axis deviation Pulmonary disease pattern Prolonged QT Abnormal ECG When compared with ECG of 15-JAN-2023 10:23, No significant change Confirmed by Obey Curry ([id number]) on 01/15/2023 3:10:40 PM Referred By: REFERRED SELF Confirmed By:Obey Curry
[2023-01-15] MEDS ORDERED: DEXTROSE 50% 50 ML SYRINGE IV PRN (16:22)
[2023-01-15] MEDS ORDERED: NITROGLYCERIN SL 0.4 MG/TAB TAB SL PRN (16:22)
[2023-01-15] MEDS ORDERED: ALBUTEROL HFA 8 GM INHALER INH PRN (16:22)
[2023-01-15] MEDS ORDERED: CARBOHYDRATES FOR HYPOGLYCEMIA PO PRN (16:22)
[2023-01-15] MEDS ORDERED: GLUCOSE 10 TAB/TUBE PO PRN (16:22)
[2023-01-15] MEDS ORDERED: GLUCAGON FOR INJ 1 MG VIAL SQ PRN (16:22)
[2023-01-15] MEDS ORDERED: GLUCOSE 40% GEL 15 GM TUBE PO PRN (16:22)
[2023-01-15] MEDS ORDERED: MoRPHine SULFATE 2 MG/ML CARP IV PRN (16:22)
[2023-01-15] MEDS ORDERED: MELATONIN 3 MG TAB PO PRN (16:35)
[2023-01-15] MEDS ORDERED: carvediloL 12.5 MG TAB PO SCH (16:45)
[2023-01-15] MEDS: INSULIN ASPART PER UNIT CHARGE SC SCH ×3 (17:03→20:56)
--- NOTE | 2023-01-15 17:08 | Cardiology Consultation ---
Date of Consultation January 15, 2023 Assessment & Plan (1) Non-ST elevation myocardial infarction (NSTEMI): (2) CAD (coronary artery disease): (3) S/P CABG x 4: (4) OLMSTEAD (dyspnea on exertion): Plan 62-year-old man with CAD who had dyspnea on moderate exertion and a stress echocardiogram suggesting moderate global ischemia at recent baseline who likely occluded his last remaining vein graft last evening and presented with a non-ST elevation myocardial infarction. As noted, he received a drug-eluting stent to his OM1 and will be on dual antiplatelet therapy with aspirin and clopidogrel long-term. Although his acute issue has now been addressed, suspect he will still have some degree of exercise limitation due to failure of the other vein grafts as well as his previously occluded right coronary artery. However, catheterization has helped to demonstrate that after fixing his 1 correctable lesion (failed vein graft to OM1), further revascularization is not readily feasible and he will need to be medically managed. Fortunately, his CABRALES graft is intact. Would continue to titrate carvedilol upward as BP allows. Avoid nitrates given his tendency to headache from these. Continue lisinopril and low-dose spironolactone as antihypertensives. Continue high-dose statin. After discharge, will enroll in cardiac rehab to allow for aggressive titration of vasoactive medications to optimize his hemodynamics and hopefully improve his exercise tolerance progressively. I will see him as an outpatient and follow-up 1 to 2 weeks after discharge. History of Present Illness Reason for Consultation: NSTEMI Requesting Physician: Jonathan Booker MD Attending Physician: Jonathan Booker MD History of Present Illness 62-year-old man known to me from outpatient cardiology care status post CABG 2019 (CABRALES and 3 vein grafts) who stress echocardiogram 2021 suggested moderate global ischemia at modest workload was admitted with acute onset chest pain, ECG changes, and elevated troponin (274.4). Even early after his bypass surgery he did not note as a substantial improvement in his exercise tolerance and he has been plagued by dyspnea at modest levels of exertion since then. For this reason he underwent a stress echocardiogram August 2022 which showed resting EF of 40-45% with mild to moderate global hypokinesis most marked in the distal septum, after 7 minutes on a Terry protocol he developed chest pain and worsening dyspnea, 1 to [address] depression, and failure of left ventricular cavity to augment post exercise with ejection fraction remaining in the 40-45% range but no new focal wall motion abnormalities identified. Findings were felt consistent with latent LV systolic dysfunction or moderate global myocardial ischemia. Given suspicion that there was low likelihood of a specific revascularizable lesion, medical management was attempted. Imdur failed due to headaches. Carvedilol was being titrated upward but he did have periods of orthostasis. He had not been experiencing anginal type chest pain outside the context of his stress study, and noted no heart failure symptoms such as orthopnea, PND, ankle edema, or weight gain. PFTs showed mild restriction but no major reversible obstruction, inhalers were not helpful. We were contemplating proceeding to cardiac catheterization to further clarify his vascular status. Last evening, he developed abrupt chest pain and presented to the ER as noted above. Cardiac catheterization by Dr. Hickman showed occluded vein grafts to the diagonal, circumflex, and ramus, intact CABRALES graft, occluded RCA, moderate LAD disease with 80% D1 stenosis, intact circumflex with 99% OM1 stenosis (felt to be culprit lesion, drug-eluting stent placed). Post procedure he is doing well. No chest pain or dyspnea. Right femoral access site benign. Allergies Allergy/AdvReac Type Severity Reaction Status Date / Time atorvastatin [From Lipitor] Allergy Verified 01/08/23 10:20 mold Allergy Verified 01/08/23 10:20 cedarwood AdvReac Intermediate Difficulty Verified 01/08/23 10:20 Breathing Home Medications Medication Instructions Recorded Confirmed Type aspirin 81 mg chewable tablet 81 mg PO DAILY 07/12/21 01/15/23 History clopidogrel 75 mg tablet (Plavix) 75 mg PO DAILY 07/12/21 01/15/23 History omeprazole 20 mg capsule,delayed 20 mg PO DAILY 07/12/21 01/15/23 History release rosuvastatin 20 mg tablet (Crestor) 20 mg PO HS 07/12/21 01/15/23 History spironolactone 25 mg tablet 12.5 mg PO DAILY 07/12/21 01/15/23 History Ligaplex PO DAILY 08/09/22 01/08/23 History melatonin 10 mg capsule 10 mg PO HS PRN Sleep 08/09/22 01/15/23 History nitroglycerin 0.4 mg sublingual 0.4 mg sublingual Q5M PRN chest 11/23/22 01/15/23 Rx tablet pain #75 tabs albuterol sulfate 90 mcg/actuation 2 puff inhalation Q6H PRN Wheezing 11/27/22 01/15/23 History aerosol inhaler lisinopril 10 mg tablet 10 mg PO HS 11/27/22 01/15/23 History metformin 500 mg tablet 500 mg PO TID 11/27/22 01/15/23 History awihuecbbjke-ycnqewbi-moclfx 1 tab PO DAILY 11/27/22 01/15/23 History tablet (Multivitamin 50 Plus tablet) carvedilol 12.5 mg tablet See Rx Instructions .Route .COMPLEX 01/15/23 01/15/23 History Patient History Medical History Asthma Diabetes mellitus, type 2 Dyslipidemia Former tobacco use HTN (hypertension) Surgical History History of coronary artery bypass graft April 2021 Social History Smoking Status: Former smoker Tobacco Type: Cigars Second Hand Exposure: No; Do You Dip or Chew Tobacco: No; Tobacco Cessation Education Requested by Patient: No Hx Alcohol Use: No Hx Substance Use: No Preferred Language: [place] Funding Specialist Required: No Beliefs That Will Affect Care: None Current Living Situation: Spouse Other Information That Helps Us Care for You: No Feels Safe at Home: Yes Safety Concerns: Feels Safe At This Time Assistive Devices: Denture - Upper, Glasses and Hearing Aid - Bilateral Physical Exam Physical Exam: No distress. BP mildly hypertensive. Pulse 80 bpm and regular. Skin: no ecchymoses or generalized lesions. HEENT: unremarkable. Neck: no JVD or carotid bruits. Lungs: Mildly decreased breath sounds but clear. Cardiac: regular rhythm, no murmur or gallop. Abdomen: benign. Right femoral access site without hematoma. Extremities: no edema, pulses intact. Neurologic: normal affect and conversation, nonfocal. Results & Data Laboratory Results Normal electrolytes, BUN 20, creatinine 1.13. Diagnostic Findings Initial ECG showed sinus rhythm with anterior T wave inversions and minimal inferior ST elevation. Repeat ECG was similar. Chest x-ray unremarkable. PG Care Time/CCT Total # of Minutes Spent Total Time Spent with Patient: Total time spent is greater than 50% in coordination of care (as documented) at patient's floor/unit and/or counseling patient: Coding Level of Care Code 70736 OFFICE CONSULT LVL Diagnoses Non-ST elevation myocardial infarction (NSTEMI) I21.4 CAD (coronary artery disease) I25.10 S/P CABG x 4 Z95.1 OLMSTEAD (dyspnea on exertion) R06.09
[2023-01-15] MEDS: carvediloL 3.125 MG TAB PO SCH (17:27)
[2023-01-15] MEDS: LANTUS PER UNIT CHARGE SQ SCH (20:56)
[2023-01-15] MEDS ORDERED: lisinopril 10 MG TAB PO SCH (21:00)
[2023-01-15] MEDS ORDERED: ROSUVASTATIN CALCIUM 20 MG TAB PO SCH (21:00)
[2023-01-16 08:00] LABS: Basophils # (auto) 0.03 K/uL (0-0.2); Basophils % (auto) 0.8 %; Eosinophils # (auto) 0.13 K/uL (0-0.50); Eosinophils % (auto) 3.3 %; Hematocrit (blood only) 40.7 % (42.0-52.0); Immature Granulocytes # (auto) 0.03 K/uL (0.01-0.20); Immature Granulocytes % (auto) 0.8 %; Lymphocytes # (auto) 1.76 K/uL (1.2-3.4); Lymphocytes % (auto) 44.9 %; Mean Corpuscular Hemoglobin 28.2 pg (25.0-34.0); Mean Corpuscular Hgb Conc 34.4 g/dL (32.0-36.0); Mean Corpuscular Volume 82.1 fL (80.0-100.0); Mean Platelet Volume 10.3 fL (9.4-12.4); Monocytes % (auto) 2.6 %; Neutrophils # (auto) 1.87 K/uL (1.40-6.50); Neutrophils % (auto) 47.6 %; Platelet Count 146 K/uL (130-400); RDW Coefficient of Variation 13.2 % (11.5-14.5); RDW Standard Deviation 39.2 fL (36.4-46.3); Red Blood Count 4.96 M/uL (4.70-6.10); White Blood Count 3.92 K/ul (4.8-10.8)
[2023-01-16] MEDS: INSULIN ASPART PER UNIT CHARGE SC SCH ×2 (08:23→12:01)
[2023-01-16] MEDS: carvediloL 3.125 MG TAB PO SCH (08:25)
[2023-01-16 08:27] LABS: BUN Creatinine Ratio 14.4 (10-20); Est GFR (African American) 80.9 ml/min; Est GFR (Non-African American) 69.8 ml/min; Potassium 3.9 mmol/L (3.5-5.1)
[2023-01-16] MEDS: LANTUS PER UNIT CHARGE SQ SCH (08:29)
[2023-01-16 08:48] LABS: Estimated Average Glucose 171 mg/dl; Hemoglobin A1C 7.6 % (4.5-5.6)
[2023-01-16] MEDS ORDERED: lisinopril 10 MG TAB PO SCH ×3 (09:00→21:00)
[2023-01-16] MEDS ORDERED: SPIRONOLACTONE 12.5 MG TAB PO SCH (09:00)
[2023-01-16] MEDS ORDERED: ROSUVASTATIN CALCIUM 20 MG TAB PO SCH (09:00)
[2023-01-16] MEDS ORDERED: PANTOprazole 40 MG TAB PO SCH (09:00)
[2023-01-16] MEDS ORDERED: CLOPIDOGREL BISULFATE 75 MG TAB PO SCH (09:00)
[2023-01-16] MEDS ORDERED: ASPIRIN 81 MG ECTAB PO SCH (09:00)
--- NOTE | 2023-01-16 09:35 | Electrocardiogram Report ---
Test Reason : Blood Pressure : / mmHG Vent. Rate : 085 BPM Atrial Rate : 085 BPM P-R Int : 162 ms QRS Dur : 092 ms QT Int : 428 ms P-R-T Axes : 063 -46 258 degrees QTc Int : 509 ms Normal sinus rhythm with sinus arrhythmia Left axis deviation Old Inferior infarct Prolonged QT Abnormal ECG When compared with ECG of 15-JAN-2023 14:31, No significant change was found Confirmed by Obey Curry ([id number]) on 01/16/2023 9:34:40 AM Referred By: REFERRED SELF Confirmed By:Obey Curry
--- NOTE | 2023-01-16 12:13 | Cardiology Progress Note ---
Date of Service January 16, 2023 Assessment & Plan (1) Non-ST elevation myocardial infarction (NSTEMI): (2) CAD (coronary artery disease): (3) S/P CABG x 4: (4) OLMSTEAD (dyspnea on exertion): Plan He is doing well after placement of drug-eluting stent in OM1 by Dr. Hickman. Should be discharged on dual antiplatelet therapy of aspirin and clopidogrel and remain on these long-term. Given transient periods of hypertension and opportunities for further heart rate control, would resume his prior carvedilol dose of 25 mg every morning/12.5 mg every afternoon). Continue lisinopril and spironolactone as before. Not a candidate for long-acting nitrates due to intolerance (severe headache). After discharge, will enroll in cardiac rehab to allow for aggressive titration of vasoactive medications to optimize his hemodynamics and hopefully improve his exercise tolerance progressively. I will see him as an outpatient and follow-up 1 to 2 weeks after discharge. Admission and Anticipated Discharge Date Admission Date: January 15, 2023 Subjective Feeling much better today. No chest pain or, dyspnea, palpitations, or orthostatic lightheadedness. BP normotensive to mildly hypertensive. Pulse in the 80 bpm range. Telemetry with sinus rhythm, no dysrhythmias. Physical Exam Physical Exam: No distress. BP normotensive. Pulse 80 bpm and regular. Skin: no ecchymoses or generalized lesions. HEENT: unremarkable. Neck: no JVD or carotid bruits. Lungs: Mildly decreased breath sounds but clear. Cardiac: regular rhythm, no murmur or gallop. Abdomen: benign. Right femoral access site without hematoma. Extremities: no edema, pulses intact. Neurologic: normal affect and conversation, nonfocal. Results & Data Vital Signs (Past 12 Hours) Vital Signs Temp Pulse Pulse Resp BP Pulse Ox O2 Del Method 01/16/23 12:05 97.3 F L 81 18 123/77 98 Room Air 01/16/23 07:29 90 01/16/23 06:58 98.4 F 77 18 113/71 97 Room Air 01/16/23 02:42 97.9 F 83 18 103/66 97 Room Air Laboratory Results Normal electrolytes, BUN 16, creatinine 1.11. PG Care Time/CCT Total # of Minutes Spent Total Time Spent with Patient: Total time spent is greater than 50% in coordination of care (as documented) at patient's floor/unit and/or counseling patient: Coding Level of Care Code 13577 SUB INP/OBS CARE 350MIN Diagnoses Non-ST elevation myocardial infarction (NSTEMI) I21.4 CAD (coronary artery disease) I25.10 S/P CABG x 4 Z95.1 OLMSTEAD (dyspnea on exertion) R06.09
--- NOTE | 2023-01-16 12:31 | XCELERA ---
[id number]
--- NOTE | 2023-01-16 12:34 | Discharge Summary ---
Date of Service January 16, 2023 Admission HPI Per Admitting Provider Ramy Mcneal is a 62-year-old male with a past medical history of CABG x4, DM 2, hypertension, asthma, shortness of breath who experienced constant chest pain for around 9 hours prior to presentation to the ER which improved temporarily but did not resolve with nitro and then recurred. He has taken 9 nitro since midnight. Hx 2020 Left ADAMA to LAD, saphenous vein graft to obtuse marginal, saphenous graft to ramus intermedius, saphenous vein graft to diagonal w/ Dr. Pineda [facility]. 11pm-12 last night developed chest pain in right and left chest which improves but did resolve with nitro. Went from 7/10, improved with nitro to ~4 then would return after ~1 hour. +sweating/diaphoresis with episode earlier in the night, but not this morning or in ER. Leading up to this in the previous few months when he carries things or exerts himself has had intermittent chest tighness, and sometimes shortness of breath. While cutting his grass he would usually stop 2-3 times due to the symptoms, and then they improved over several minutes to half hour overall the symptoms seem to be worse in the last 2 to 3 months. No syncope or presyncope. Chest pain had always gone away with rest up until this past evening. Has a history of intermittent asthma. Trialed BrezTri which did not help much. Was told as a child 'had smaller lungs.' Follows with pulmonology. Does have some nighttime snoring/wheezing which improved after bipass. Polysomnography x2 did not show sleep apnea. Intermittent mild pedal edema which improves with putting his legs up. Generally tries to follow a low salt diet, sometimes has a few chips at night. Denies orthopnea. DM: Last A1C 7.0%. Took metformin this morning. Generally patient reports he does okay and is just at goal but it is a struggle "everything that taste good is bad for you ". Medical History: Reviewed Medications: Reviewed. Recently switched quinapril to lisinopril 10 mg due to availability which he takes in the evening. Recently uptitrated carvedilol to 12.5 mg p.m./25 mg a.m. from 12.5 mg twice daily. Patient had not tolerated Imdur in the past. Surgical History: Reviewed Family history: Reviewed Allergies: Reviewed Social History: Had 1x cigar yesterday, but no other tobacco use in 3 years. No EtoH use. Former chew use, quit in 1989. Code Status: Full Principal Diagnosis Non-ST elevation LA Discharge Exam General-alert and oriented x3, no fevers, no chills HEENT-head atraumatic and normocephalic, pupils equal and reactive to light, extraocular muscles intact Neck-no lymphadenopathy or thyromegaly, trachea midline Chest-clear to auscultation percussion. No rales wheezing or rhonchi Cardiac-regular rate and rhythm, normal S1 and S2 Abdomen-normal bowel sounds, nontender, no hepatosplenomegaly Extremities-no cyanosis, clubbing, or edema Neuro-cranial nerves II through XII intact, motor and sensory function within normal limits, strength symmetrical , no focal deficits Psych-normal affect, normal mood Discharge Data Allergies Allergy/AdvReac Type Severity Reaction Status Date / Time atorvastatin [From Lipitor] Allergy Verified 01/08/23 10:20 mold Allergy Verified 01/08/23 10:20 cedarwood AdvReac Intermediate Difficulty Verified 01/08/23 10:20 Breathing Consultations 01/15/23 10:29 ED Decision to Admit Stat 01/15/23 16:22 Consult Cardiology Routine Procedures Performed Operation Date: 01/15/23 12:00 Actual Procedures p Cineradiography w/Routine Exam - Micah Hickman MD, PhD s Cath, Cors with Grafts (no LV) - Micah Hickman MD, PhD s Drug Eluting Stent SGl Vessel - Micah Hickman MD, PhD s Placement Art Occlusive Device - Micah Hickman MD, PhD s Ultrasound Vascular Access - Micah Hickman MD, PhD Ordered Studies 01/15/23 10:57 CL Cath Imgs for PACS use only Stat Hospital Course (1) Unstable angina: He appears to have suffered a non-ST elevation LA. He underwent left heart catheterization shortly after admission and subsequently had a drug-eluting stent placed in the first obtuse marginal branch. Appreciate cardiology consultation and recommendations. He is stable for discharge home today, January 16 (2) History of coronary artery bypass graft: Multivessel CAD. History of CABGx4 05/11/2020. Continue medical management (3) Asthma: Currently stable. Continue current medical management (4) Diabetes mellitus, type 2: ADA diet. Treated with insulin while hospitalized. Resume metformin at discharge (5) HTN (hypertension): Controlled with Carvedilol, lisinopril, spironolactone (6) Dyslipidemia: Stable. Continue rosuvastatin Plan Discharge to home today, January 16. He will follow-up with cardiology as an outpatient and also enter into cardiac rehabilitation. Total Time Total Time Spent Total Time Spent (In Minutes): 40 minutes Discharge Plan Discharge Items Patient Disposition: Home - Self-Care Reason For Visit: NSTEMI Discharge Diagnosis: Non-ST elevation LA Activity: As commented below Activity Comment: Avoid overexertion until cleared by cardiology Non-emergency contact: Primary Care Provider Call non-emergency contact if: you have any medication questions and your symptoms worsen Follow-up/Referrals: Obey Castano [Primary Care Provider] - Diet: Regular and Heart Healthy Addtl Attending Provider Instructions: Cardiac rehabilitation recommended by cardiology. Pending Studies at Discharge: No Stand-Alone Forms: My ComCam, Smoking Cessation Medications and DC Order Prescriptions: New nitroglycerin [Nitrostat] 0.4 mg Tablet, Sublingual 0.4 mg sublingual UD PRN (Reason: chest pain) Qty: 25 0RF aspirin 81 mg Tablet,Delayed Release (Dr/Ec) 81 mg PO QAM Qty: 0 0RF Continued nitroglycerin 0.4 mg tablet, sublingual 0.4 mg sublingual Q5M PRN (Reason: chest pain) Qty: 75 0RF Rx Instructions: do not exceed 3 doses per episode melatonin 10 mg capsule 10 mg PO HS PRN (Reason: Sleep) Ligaplex PO DAILY aspirin 81 mg tablet,chewable 81 mg PO DAILY clopidogrel [Plavix] 75 mg tablet 75 mg PO DAILY omeprazole 20 mg capsule,delayed release(DR/EC) 20 mg PO DAILY rosuvastatin [Crestor] 20 mg tablet 20 mg PO HS spironolactone 25 mg tablet 12.5 mg PO DAILY metformin 500 mg tablet 500 mg PO TID albuterol sulfate 90 mcg/actuation HFA aerosol inhaler 2 puff inhalation Q6H PRN (Reason: Wheezing) Multivitamin 50 Plus Tablet 1 tab PO DAILY lisinopril 10 mg tablet 10 mg PO HS carvedilol 12.5 mg tablet See Rx Instructions .ROUTE .COMPLEX Rx Instructions: must administer with a meal/food 25mg AM, 12.5mg PM Discharge Orders: Discharge Order (Routine); Ordered 01/16/23 Ordered By: Fidel Rivera Admission Data Admit Date/Time: 01/15/23 11:26 Attending Provider: Fidel Rivera Admit Provider: Jonathan Booker Primary Care Provider: Obey Castano Other Providers: Jonathan Booker ; Obey Curry Coding Level of Care Code 10886 INP/OBS DISCH >30 MIN Diagnoses Unstable angina I20.0 History of coronary artery bypass graft Z95.1 Asthma J45.909 Diabetes mellitus, type 2 E11.9 HTN (hypertension) I10 Dyslipidemia E78.5
== END 2023-01-16 13:12 | disposition home or self-care (01) | DRG 247 ==
LOC: ED 09:11 → CC 11:25 → 2S 11:26 → SUATTDRO 11:26 → 2S 11:32
PROC: CLB.CCG (2023-01-15 12:00)

== ENCOUNTER 2023-12-29 13:03 | Inpatient (IN) ==
--- NOTE | 2023-12-29 13:45 | Emergency Department Note ---
Impression & Plan Left-sided chest pain, Hypomagnesemia, Pleuritic chest pain, Pneumonia, DVT (deep venous thrombosis), Tachycardia ED Provider Note NAME: MAG MEDEROS AGE: 63 SEX: M : 1960 ARRIVES VIA: Walk-In INFORMANT: [Patient] ED PROVIDER(S): [Renny Conley MD] CHIEF COMPLAINT: Chest pain HISTORY OF PRESENT ILLNESS: The patient is a 63-year-old male who presents to the ED with complaints of 3 and half hours of sharp left pleuritic chest pain. The pain does worsen at times with movement but he really notices it with breathing. The pain started at rest. He has not felt short of breath. There has been no cough or chest wall trauma. He does have a history of 4 coronary bypasses as well as 1 coronary stent. No history of previous DVT or PE. The patient states he took 2 nitroglycerin at home without relief. He presents for evaluation. PMHx/PSHx/Social Hx: See Below PHYSICAL EXAM: GENERAL: Patient is in no acute distress. HEENT: No acute trauma, normocephalic atraumatic, mucous membranes moist, no nasal congestion. NECK: No stridor, no adenopathy, no meningismus, trachea is midline. LUNGS: Occasional crackles heard bilaterally, especially on the left. No wheezing. No respiratory distress. Chest: Nontender chest wall. HEART: Subtle systolic murmur, heart tones distant, regular rhythm, mildly tachycardic. ABDOMEN: Soft, nontender, no peritonitis. EXTREMITIES: No cyanosis, full range of motion of all the joints without pain or difficulty. NEUROLOGIC: Oriented x 3, no acute motor or sensory deficits, no focal weakness. SKIN: No jaundice, no diaphoresis. DIFFERENTIAL DIAGNOSIS: Musculoskeletal pain, PE, pneumonia, pneumothorax, AR, pericarditis, among others. EMERGENCY DEPARTMENT PROCEDURES: MEDICAL DECISION MAKING: There is a moderate leukocytosis, this certainly could be consistent with infection. There was a normal hemoglobin and platelet count. No coagulopathy. D-dimer was not elevated making PE less likely. No renal failure. Magnesium somewhat low at 1.6. No concerning liver enzyme elevation. No evidence for pancreatitis. ECG showed a normal sinus rhythm, no ischemia or dysrhythmia. Cardiac enzyme testing x 2 was not consistent with acute cardiac injury. Chest film did not show pneumonia, mediastinal widening or pneumothorax. Chest CT show potential patchy pneumonia versus distal pulmonary emboli. An ultrasound of the extremities was recommended. Bilateral lower extremity venous ultrasound shows a potential subtle DVT in the right calf. On exam, the patient was at times tachycardic. During his ER stay, he began to feel chills and developed some rigors. Patient received IV saline, 1 L. He was given IV magnesium, IV Toradol, oral Tylenol. He was given IV ceftriaxone as antibiotic coverage. The patient presents with left-sided pleuritic chest pain. He has a significant coronary/heart history. Given the tachycardia, given the findings on CT imaging, given the concern for pneumonia versus PE or both, I do think hospitalization is indicated. I spoke with the patient and case management, the on-call hospitalist was consulted. Of note, I have not started IV heparin as, given the uncertainty of the PE diagnosis, this decision has been deferred to the admitting hospitalist. Prior/Outside records/notes reviewed: None. ECG per my interpretation: Indication was chest pain. The ECG shows a normal sinus rhythm with a rate of 95. There is some nonspecific ST change. There is no ST elevation, no PVCs. The QTc is 417. Continuous Cardiac Monitoring per my interpretation: An order was placed for continuous cardiac monitoring. The monitor shows a rate of 99 with normal sinus rhythm. Imaging/x-ray results per my interpretation: Chest x-ray does not show mediastinal widening, pneumonia or pneumothorax. Chronic Medical/Social conditions affecting care: Coronary artery disease. Care/Management discussed with: Case management, the on-call hospitalist. Level of care consideration(s): After review of the information above and other included data: --I believe the patient requires escalation of care to admission Critical Care Note: I have personally spent 41 minutes of critical care time in the direct management of this patient. This includes bedside care, interpretation of diagnostic studies, and testing, discussion with consultants, patient, and family members, and other required patient management activities. This 41 minutes is in excess of all separately billable procedures. DISPOSITION: Admission Past Med/Surg History Medical History HTN (hypertension) Dyslipidemia Diabetes mellitus, type 2 CAD (coronary artery disease) Former tobacco use Asthma Surgical History History of heart artery stent 01/15/2023 S/P CABG x 4 (2019) History of coronary artery bypass graft April 2021 Social History Smoking Status: Former smoker Tobacco Type: Cigars Second Hand Exposure: No; Do You Dip or Chew Tobacco: No; Hx Alcohol Use: No Hx Substance Use: No Preferred Language: Bengali Communication Ability: Effective Sports Development Officer Required: No Beliefs That Will Affect Care: None Current Living Situation: Spouse current occupation: Retired/disability Feels Safe at Home: Yes Assistive Devices: None Allergies Allergies Allergy/AdvReac Type Severity Reaction Status Date / Time atorvastatin [From Lipitor] Allergy Verified 12/26/23 15:29 mold Allergy Verified 12/26/23 15:29 cedarwood AdvReac Intermediate Difficulty Verified 12/26/23 15:29 Breathing Home Meds Home Medications Medication Instructions Recorded Confirmed clopidogrel 75 mg tablet (Plavix) 75 mg PO DAILY 07/12/21 12/29/23 omeprazole 20 mg capsule,delayed 20 mg PO DAILY 07/12/21 12/29/23 release rosuvastatin 20 mg tablet (Crestor) 20 mg PO HS 07/12/21 12/29/23 spironolactone 25 mg tablet 12.5 mg PO DAILY 07/12/21 12/29/23 Ligaplex See Rx Instructions .Route .COMPLEX 08/09/22 12/29/23 melatonin 10 mg capsule 10 mg PO HS PRN Sleep 08/09/22 12/29/23 albuterol sulfate 90 mcg/actuation 2 puff inhalation Q6H PRN Wheezing 11/27/22 12/29/23 aerosol inhaler lisinopril 10 mg tablet 10 mg PO HS 11/27/22 12/29/23 metformin 500 mg tablet 500 mg PO TID 11/27/22 12/29/23 [id number] 1 tab PO DAILY 11/27/22 12/29/23 tablet (Multivitamin 50 Plus tablet) Previous Rx's Medication Instructions Recorded aspirin 81 mg tablet,delayed 81 mg PO QAM #0 tabs 01/16/23 release nitroglycerin 0.4 mg sublingual 0.4 mg sublingual UD PRN chest 01/16/23 tablet (Nitrostat) pain #25 tabs carvedilol 3.125 mg tablet 3.125 mg PO BID #180 tabs 04/25/23 Results & Data (ED) Vital Signs Vital Signs - 24 hr 12/29/23 13:06 12/29/23 13:06 12/29/23 13:28 Temperature 36.4 C L Temperature Source Temporal Artery Scan Pulse Rate 98 H 96 H Pulse Rate [Apical] Pulse Rhythm Respiratory Rate 19 Respiratory Effort / Characteristics SOB on Exertion Respiratory Depth Blood Pressure 101/70 Blood Pressure [Right Arm] Blood Pressure Mean 80 Blood Pressure Mean [Right Arm] Pulse Oximetry 97 Oxygen Delivery Method Room Air Sepsis Recent Fever Within 48 Hours No Sepsis New/Unexplained Change in Mental Status N/A Sepsis Action Taken by Nursing No Action Required 12/29/23 13:42 12/29/23 13:42 12/29/23 15:07 Temperature Temperature Source Pulse Rate 96 H Pulse Rate [Apical] 97 H 107 H Pulse Rhythm Regular Respiratory Rate 18 22 18 Respiratory Effort / Characteristics Non-Labored Non-Labored Respiratory Depth Normal Normal Blood Pressure Blood Pressure [Right Arm] 122/81 Blood Pressure Mean Blood Pressure Mean [Right Arm] 94 Pulse Oximetry 99 97 99 Oxygen Delivery Method Room Air Room Air Room Air Sepsis Recent Fever Within 48 Hours Sepsis New/Unexplained Change in Mental Status Sepsis Action Taken by Nursing 12/29/23 15:57 12/29/23 15:59 12/29/23 17:00 Temperature 37.3 C Temperature Source Oral Pulse Rate Pulse Rate [Apical] 107 H 108 H Pulse Rhythm Respiratory Rate 24 20 Respiratory Effort / Characteristics Respiratory Depth Normal Normal Blood Pressure Blood Pressure [Right Arm] 138/77 142/87 H Blood Pressure Mean Blood Pressure Mean [Right Arm] 97 105 Pulse Oximetry 97 Oxygen Delivery Method Room Air Sepsis Recent Fever Within 48 Hours Sepsis New/Unexplained Change in Mental Status Sepsis Action Taken by Nursing 12/29/23 17:50 Temperature Temperature Source Pulse Rate 114 H Pulse Rate [Apical] Pulse Rhythm Respiratory Rate Respiratory Effort / Characteristics Respiratory Depth Blood Pressure Blood Pressure [Right Arm] Blood Pressure Mean Blood Pressure Mean [Right Arm] Pulse Oximetry Oxygen Delivery Method Sepsis Recent Fever Within 48 Hours Sepsis New/Unexplained Change in Mental Status Sepsis Action Taken by Longterm Medications Current Medication List: was personally reviewed by me Laboratory Data Attestation: I reviewed the patient's lab results. 12/29/23 13:30 12/29/23 13:30 Lab Results 12/29/23 12/29/23 Range/Units 13:30 17:10 WBC 14.50 H (4.8-10.8) K/ul RBC 4.93 (4.70-6.10) M/uL Hgb 14.0 (14.0-18.0) g/dl Hct 41.5 L (42.0-52.0) % MCV 84.2 (80.0-100.0) fL MCH 28.4 (25.0-34.0) pg MCHC 33.7 (32.0-36.0) g/dL RDW Std Deviation 38.9 (36.4-46.3) fL RDW Coeff of [place]ley 12.8 (11.5-14.5) % Plt Count 157 (130-400) K/uL MPV 10.6 (9.4-12.4) fL Immature Gran % (Auto) 0.8 % Neut % (Auto) 70.5 % Lymph % (Auto) 16.7 % Wheeler % (Auto) 7.3 % Eos % (Auto) 4.1 % Baso % (Auto) 0.6 % Neut # (Auto) 10.23 H (1.40-6.50) K/uL Lymph # (Auto) 2.42 (1.20-3.40) K/uL Wheeler # (Auto) 1.06 H (0.11-0.59) K/uL Eos # (Auto) 0.59 H (0.00-0.50) K/uL Baso # (Auto) 0.08 (0.00-0.20) K/uL Immature Gran # (Auto) 0.12 (0.01-0.20) K/uL PT 11.9 (9.0-12.0) Seconds INR 1.1 (0.9-1.1) APTT 24 (21-31) Seconds PTT Ratio 0.9 D-Dimer 470 (0-500) ug/L FEU Sodium 137 (136-145) mmol/L Potassium 4.2 (3.5-5.1) mmol/L Chloride 102 (98-107) mmol/L Carbon Dioxide 27 (21-32) mmol/L Anion Gap 8 (3-11) BUN 12 (6-23) mg/dl Creatinine 0.99 (0.6-1.4) mg/dl Est Cr Clr Drug Dosing 72.0 ml/min Est GFR ( Amer) 92.2 ml/min Est GFR (Non-Af Amer) 79.6 ml/min BUN/Creatinine Ratio 12.1 (10-20) Glucose 185 H (70-99(Fasting)) mg/dl Calcium 9.2 (8.6-10.3) mg/dl Magnesium 1.6 L (1.7-2.4) mg/dl Total Bilirubin 0.7 (0.2-1.0) mg/dl AST 17 (13-39) U/L ALT 22 (7-52) U/L Alkaline Phosphatase 39 (34-104) U/L Troponin I High Sens 4.3 4.5 (0-20) pg/ml Total Protein 6.8 (6.0-8.3) gm/dl Albumin 4.2 (3.4-5.0) gm/dl Globulin 2.6 (2.5-4.0) gm/dl Albumin/Globulin Ratio 1.6 (0.9-2) Lipase 32 (11-82) U/L Administered Medications Sodium Chloride (Nss) 1,000 mls @ 999 mls/hr IV .Q1H1M ONE Stop: 12/29/23 18:30 Last Admin: 12/29/23 17:42 Dose: 999 mls/hr Documented By: DARIN Discontinued Medications Acetaminophen (Acetaminophen 500 Mg Tab) 1,000 mg PO NOW STA Stop: 12/29/23 17:31 Last Admin: 12/29/23 17:42 Dose: 1,000 mg Documented By: DARIN Magnesium Sulfate/Dextrose (Magnesium Sulfate / D5w) 1 gm in 100 mls @ 100 mls/hr IV NOW STA Stop: 12/29/23 15:11 Last Infusion: 12/29/23 17:03 Dose: Infused Documented By: Admin: 12/29/23 15:09 Dose: 100 mls/hr Documented By: DARIN Ceftriaxone Sodium (Rocephin) 2,000 mg in 50 mls @ 100 mls/hr IV NOW STA Stop: 12/29/23 15:57 Last Infusion: 12/29/23 17:03 Dose: Infused Documented By: Admin: 12/29/23 15:50 Dose: 100 mls/hr Documented By: DARIN Ioversol (Optiray 320 125ml) 119 ml IV ONCE ONE Stop: 12/29/23 15:01 Last Admin: 12/29/23 15:01 Dose: 119 ml Documented By: RAFAEL Ketorolac Tromethamine (Ketorolac Tromethamine 15 Mg/Ml Vial) 10 mg IV NOW ONE Stop: 12/29/23 17:31 Last Admin: 12/29/23 17:41 Dose: 10 mg Documented By: DARIN Imaging Data Radiologist's Impression: Chest X-Ray 12/29/23 13:23 XR chest 1V portable HISTORY: Chest pain, nonspecific COMPARISON: Chest 01/15/2023. FINDINGS: No pneumothorax. No pleural effusions. The lungs are clear. The cardiac silhouette remains top normal in size. There are poststernotomy changes. No acute fractures. IMPRESSION: No acute process. ACT 112: Negative or not required by law. Electronically signed by: Sunil Klein M.D. 12/29/2023 1:46 PM Chest CTA 12/29/23 14:35 CHEST CTA for PULMONARY ARTERIES CT DOSE: 734.58 mGy.cm HISTORY: Shortness of breath. TECHNIQUE: Multiaxial CT images of the chest were performed following the intravenous administration of contrast to evaluate the pulmonary arteries. 3D/Maximal intensity projection images were also obtained. Sagittal and coronal reformations were also reviewed. A dose lowering technique was utilized adhering to the principles of ALARA. COMPARISON STUDY: Chest 12/29/2023. FINDINGS: Normal caliber thoracic aorta with no evidence for a dissection. The heart is top normal in size. No pleural or pericardial effusions. Nondiagnostic evaluation of the majority of the segmental/subsegmental pulmonary arteries within the bilateral lower lobes due to the respiratory motion artifact. Otherwise, no filling defects within the remaining pulmonary arteries to suggest a pulmonary embolus. Limited views of the upper abdomen demonstrate a normal liver, spleen, and adrenal glands. The thyroid gland enhances normally. Normal esophagus. No mediastinal or hilar lymphadenopathy. No acute fractures. There are poststernotomy changes. The central airways are patent. No pneumothorax. There are few scattered small peripheral airspace opacities most pronounced within the left lung. Dominant focal opacity within the lingula on image 112 measures 17 mm. Some of these have a wedge-shaped appearance. IMPRESSION: 1. No definite evidence for a pulmonary embolus with limitations as described above. 2. A few scattered small peripheral airspace opacities within the lungs most pronounced on the left. These favor inflammatory/infectious change. Scattered pulmonary infarcts could also have a similar appearance in the setting of occult pulmonary emboli. Consider follow-up lower extremity venous Doppler for further evaluation. ACT 112: Negative or not required by law. Electronically signed by: Sunil Klein M.D. 12/29/2023 3:20 PM Venous Doppler Study 12/29/23 15:28 BILATERAL LOWER EXTREMITY VENOUS DOPPLER HISTORY: Abnormal chest CTA. Possible occult pulmonary emboli, pleuritic pain COMPARISON STUDY: None. FINDINGS: There is normal compressibility, flow, and augmentation within the left lower extremity deep venous system. The right common femoral and superficial femoral arteries are patent. The right popliteal vein is patent. However, there is thrombus identified within a branch of the popliteal vein which is 7 mm from the confluence and measures approximately 3 cm in length. This could represent a gastrocnemius vein or the lesser saphenous vein. Therefore, this could represent a small deep or superficial thrombus within the right calf. IMPRESSION: 1. No DVT within the left lower extremity. 2. The right popliteal vein is patent. However, there is thrombus identified within a branch of the popliteal vein which is 7 mm from the confluence and measures approximately 3 cm in length. This could represent a gastrocnemius vein or the lesser saphenous vein. Therefore, this could represent a small deep or superficial thrombus within the right calf. ACT 112: Negative or not required by law. Electronically signed by: Sunil Klein M.D. 12/29/2023 4:49 PM Discharge Plan Visit Data Chief Complaint: Chest Pain Stated Complaint: SHARP CHEST PAIN, HX OF BYPASS AND STENT ED Provider: Renny Conley Discharge Problem: Left-sided chest pain, Hypomagnesemia, Pleuritic chest pain, Pneumonia, DVT (deep venous thrombosis), Tachycardia Patient Disposition: Admitted As Inpatient Condition: Fair Forms Stand Alone Forms: [employer] Prescriptions Prescriptions: No Action melatonin 10 mg capsule 10 mg PO HS PRN (Reason: Sleep) Ligaplex See Rx Instructions .ROUTE .COMPLEX Rx Instructions: as directed carvedilol 3.125 mg tablet 3.125 mg PO BID Qty: 180 2RF Rx Instructions: must administer with a meal/food clopidogrel [Plavix] 75 mg tablet 75 mg PO DAILY omeprazole 20 mg capsule,delayed release(DR/EC) 20 mg PO DAILY rosuvastatin [Crestor] 20 mg tablet 20 mg PO HS spironolactone 25 mg tablet 12.5 mg PO DAILY metformin 500 mg tablet 500 mg PO TID albuterol sulfate 90 mcg/actuation HFA aerosol inhaler 2 puff inhalation Q6H PRN (Reason: Wheezing) Multivitamin 50 Plus Tablet 1 tab PO DAILY lisinopril 10 mg tablet 10 mg PO HS aspirin 81 mg Tablet,Delayed Release (Dr/Ec) 81 mg PO QAM Qty: 0 0RF nitroglycerin [Nitrostat] 0.4 mg Tablet, Sublingual 0.4 mg sublingual UD PRN (Reason: chest pain) Qty: 25 0RF Referrals Referrals: Obey Castano [Primary Care Provider] - Discharge Problem: Pneumonia Qualifiers: Pneumonia type: due to unspecified organism Laterality: left Lung location: u nspecified part of lung Qualified Code(s): J18.9 - Pneumonia, unspecified organism DVT (deep venous thrombosis) Qualifiers: DVT location: lower extremity Affected thrombotic vein of extremity: u nspecified vein of extremity Chronicity: acute Laterality: right Qualified Code(s): I82.401 - Acute embolism and thrombosis of unspecified deep veins of right lower extremity
--- NOTE | 2023-12-29 13:49 | XRay Report ---
XR chest 1V portable HISTORY: Chest pain, nonspecific COMPARISON: Chest 01/15/2023. FINDINGS: No pneumothorax. No pleural effusions. The lungs are clear. The cardiac silhouette remains top normal in size. There are poststernotomy changes. No acute fractures. IMPRESSION: No acute process. ACT 112: Negative or not required by law. Electronically signed by: Sunil Klein M.D. 12/29/2023 1:46 PM
[2023-12-29 13:57] LABS: Basophils # (auto) 0.08 K/uL (0.00-0.20); Basophils % (auto) 0.6 %; Eosinophils # (auto) 0.59 K/uL (0.00-0.50); Eosinophils % (auto) 4.1 %; Hematocrit (blood only) 41.5 % (42.0-52.0); Immature Granulocytes # (auto) 0.12 K/uL (0.01-0.20); Immature Granulocytes % (auto) 0.8 %; Lymphocytes # (auto) 2.42 K/uL (1.20-3.40); Lymphocytes % (auto) 16.7 %; Mean Corpuscular Hemoglobin 28.4 pg (25.0-34.0); Mean Corpuscular Hgb Conc 33.7 g/dL (32.0-36.0); Mean Corpuscular Volume 84.2 fL (80.0-100.0); Mean Platelet Volume 10.6 fL (9.4-12.4); Monocytes # (auto) 1.06 K/uL (0.11-0.59); Monocytes % (auto) 7.3 %; Neutrophils # (auto) 10.23 K/uL (1.40-6.50); Neutrophils % (auto) 70.5 %; Platelet Count 157 K/uL (130-400); RDW Coefficient of Variation 12.8 % (11.5-14.5); RDW Standard Deviation 38.9 fL (36.4-46.3); Red Blood Count 4.93 M/uL (4.70-6.10)
[2023-12-29 14:08] LABS: Albumin Globulin Ratio 1.6 (0.9-2); Albumin Level 4.2 gm/dl (3.4-5.0); BUN Creatinine Ratio 12.1 (10-20); Bilirubin,Total 0.7 mg/dl (0.2-1.0); Calcium 9.2 mg/dl (8.6-10.3); Est GFR (African American) 92.2 ml/min; Est GFR (Non-African American) 79.6 ml/min; Globulin 2.6 gm/dl (2.5-4.0); Magnesium 1.6 mg/dl (1.7-2.4); Potassium 4.2 mmol/L (3.5-5.1); Total Protein 6.8 gm/dl (6.0-8.3)
[2023-12-29 14:15] LABS: Troponin I High Sensitivity 4.3 pg/ml (0-20)
[2023-12-29 14:33] LABS: D Dimer 470 ug/L FEU (0-500); INR 1.1 (0.9-1.1); Partial Thromboplastin Ratio 0.9; Partial Thromboplastin Time 24 Seconds (21-31); Prothrombin Time 11.9 Seconds (9.0-12.0)
[2023-12-29] MEDS: OPTIRAY 320 125ml IV ONE (15:01)
[2023-12-29] MEDS: MAGNESIUM SULFATE / D5W 1 GM/100 ML BAG IV STA (15:09)
--- NOTE | 2023-12-29 15:22 | CT Scan Report ---
CHEST CTA for PULMONARY ARTERIES CT DOSE: 734.58 mGy.cm HISTORY: Shortness of breath. TECHNIQUE: Multiaxial CT images of the chest were performed following the intravenous administration of contrast to evaluate the pulmonary arteries. 3D/Maximal intensity projection images were also obta ined. Sagittal and coronal reformations were also reviewed. A dose lowering technique was utilized a dhering to the principles of ALARA. COMPARISON STUDY: Chest 12/29/2023. FINDINGS: Normal caliber thoracic aorta with no evidence for a dissection. The heart is top normal in size. No pleural or pericardial effusions. Nondiagnostic evaluation of the majority of the segmental /subsegmental pulmonary arteries within the bilateral lower lobes due to the respiratory motion artif act. Otherwise, no filling defects within the remaining pulmonary arteries to suggest a pulmonary emb olus. Limited views of the upper abdomen demonstrate a normal liver, spleen, and adrenal glands. The thyroid gland enhances normally. Normal esophagus. No mediastinal or hilar lymphadenopathy. No acute fractures. There are poststernotomy changes. The central airways are patent. No pneumothorax. There a re few scattered small peripheral airspace opacities most pronounced within the left lung. Dominant f ocal opacity within the lingula on image 112 measures 17 mm. Some of these have a wedge-shaped appear ance. IMPRESSION: 1. No definite evidence for a pulmonary embolus with limitations as described above. 2. A few scattered small peripheral airspace opacities within the lungs most pronounced on the left. These favor inflammatory/infectious change. Scattered pulmonary infarcts could also have a similar ap pearance in the setting of occult pulmonary emboli. Consider follow-up lower extremity venous Doppler for further evaluation. ACT 112: Negative or not required by law. Electronically signed by: Sunil Klein M.D. 12/29/2023 3:20 PM
[2023-12-29] MEDS: cefTRIAXone SODIUM 2,000 MG/50 ML BAG IV STA (15:50)
--- NOTE | 2023-12-29 16:51 | Ultrasound Report ---
BILATERAL LOWER EXTREMITY VENOUS DOPPLER HISTORY: Abnormal chest CTA. Possible occult pulmonary emboli, pleuritic pain COMPARISON STUDY: None. FINDINGS: There is normal compressibility, flow, and augmentation within the left lower extremity ansley p venous system. The right common femoral and superficial femoral arteries are patent. The right popl iteal vein is patent. However, there is thrombus identified within a branch of the popliteal vein whi ch is 7 mm from the confluence and measures approximately 3 cm in length. This could represent a [place] rocnemius vein or the lesser saphenous vein. Therefore, this could represent a small deep or superfic ial thrombus within the right calf. IMPRESSION: 1. No DVT within the left lower extremity. 2. The right popliteal vein is patent. However, there is thrombus identified within a branch of the p opliteal vein which is 7 mm from the confluence and measures approximately 3 cm in length. This could represent a gastrocnemius vein or the lesser saphenous vein. Therefore, this could represent a small deep or superficial thrombus within the right calf. ACT 112: Negative or not required by law. Electronically signed by: Sunil Klein M.D. 12/29/2023 4:49 PM
--- NOTE | 2023-12-29 17:36 | History & Physical Report ---
Date of Service December 29, 2023 Assessment & Plan (1) Pleuritic chest pain: Plan: Acute onset of left-sided pleuritic chest pain on the morning of 12/28; constant, and worse with deep breaths Patient is tachycardic at 114 bpm in the ED at time of admission Troponin WNL x 2 Negative D-dimer, and chest CTA revealed no definite evidence of pulmonary emboli However, there were several scattered small peripheral airspace opacities that could favor an inflammatory or infectious process, and could look similar in the setting of occult pulmonary emboli Follow-up venous Doppler study revealed 7 mm thrombus within a branch of the right popliteal vein Given this finding in conjunction with the left-sided pleuritic CP and tachycardia, will initiate heparin IV standard dosing with bolus Acetaminophen as needed for pain/fever Continuous pulse oximetry Supplemental oxygen as needed to maintain SpO2 >92% A.m. CBC, BMP, mag (2) Diabetes mellitus, type 2: Plan: Last A1c at 7.2% on 12/23/2023 Glucose 185 on admission Hold metformin Lantus 7 u BID while inpatient SSI; with target BSG range 110-140mg/dL, CF 50, carb ratio 18 T2DM diet BSG ACHS Adjust regimen as needed (3) CAD (coronary artery disease): Plan: Hx of CABGx4 in 05/11/2020 Continue Aspirin/Plavix (4) Hypomagnesemia: Plan: Magnesium low at 1.6 Magnesium sulfate 1 g IV x 2 in the ED Recheck a.m. mag (5) Pneumonia: Plan: Clinically, patient denies URI symptoms such as cough or SOB Leukocytosis at 14.50 with a neutrophil predominance; afebrile, but notes chills and shaking in the ED; 37.3 C Procalcitonin ordered, pending Will defer blood culture as Rocephin started in the ED Continue Rocephin 2000 mg IV q24h (6) DVT (deep venous thrombosis): Plan: As noted on venous Doppler study Plan Disposition: Admit to PCU telemetry Full code AHA, T2DM diet VTE PPx: Heparin standard dosing IV with bolus started in the ED History of Present Illness Chief Complaint: Chest pain Primary Care Provider: Obey Mccann is a 63-year-old male with PMH of orthostatic hypotension, unstable angina, NSTEMI (in 01/2023), restrictive lung disease, and diabetic neuropathy. Patient developed left-sided chest pain the morning of 12/28 around 1000. He reports that has been fairly constant, and is worse with deep breaths. He rates the pain 7/10 in the ED, and describes it as a sharp pain worse with deep breathing, and when sitting fully upright. He also endorses occasional chest tightness/spasms. Patient took nitro x 2 at home, but this did not help the pain. Of note, while in the ED the patient developed chills over a 3-hour period. Denies any fevers at home. Denies radiation down the left arm or to the left jaw, but does note that the left chest pain occasionally wraps around the left rib cage/flank towards his back. He does have a history of OK, but he reports that this does not feel like prior episodes of OK which usually present as feelings of indigestion that worsen. Patient does take both aspirin and Plavix daily. He notes he was recently on a antibiotic for diarrhea that he finished up. No recent change in medications. Patient took all of his regular morning medications today. He denies history of blood clots, DVT/PE, or shingles; notes that he received shots for both shingles and pneumonia. No supple and oxygen at home. No sick contacts. History of kidney stones. While the patient denies chest palpitations, he does note that every so often he gets a "weird beat now and then". He denies smoking, tobacco use, and alcohol use. No recent falls, injuries to the chest wall, or exertional strain. Patient is tachycardic at 114 bpm, and hypertensive at 142/87 at admission SpO2 97% on RA ED course: NSS 1000 mL IV Tylenol 1000 mg p.o. Toradol 10 mg IV Magnesium sulfate 1 g IV Rocephin 2000 mg IV ROS: Patient endorses pleuritic CP, chills in the ED, shaking, dizziness when standing, recent course of diarrhea Patient denies fever, sweating, headache, chest pain, left arm or jaw pain/pressure, cough, SOB, hemoptysis, abdominal pain, N/V, burning with urination, blood in the urine or stool, or numbness/tingling/erythema/swelling in the legs. Allergies Allergy/AdvReac Type Severity Reaction Status Date / Time atorvastatin [From Lipitor] Allergy Verified 12/26/23 15:29 mold Allergy Verified 12/26/23 15:29 cedarwood AdvReac Intermediate Difficulty Verified 12/26/23 15:29 Breathing Home Medications Medication Instructions Recorded Confirmed Type clopidogrel 75 mg tablet (Plavix) 75 mg PO DAILY 07/12/21 12/29/23 History omeprazole 20 mg capsule,delayed 20 mg PO DAILY 07/12/21 12/29/23 History release rosuvastatin 20 mg tablet (Crestor) 20 mg PO HS 07/12/21 12/29/23 History spironolactone 25 mg tablet 12.5 mg PO DAILY 07/12/21 12/29/23 History Ligaplex See Rx Instructions .Route .COMPLEX 08/09/22 12/29/23 History melatonin 10 mg capsule 10 mg PO HS PRN Sleep 08/09/22 12/29/23 History albuterol sulfate 90 mcg/actuation 2 puff inhalation Q6H PRN Wheezing 11/27/22 12/29/23 History aerosol inhaler lisinopril 10 mg tablet 10 mg PO HS 11/27/22 12/29/23 History metformin 500 mg tablet 500 mg PO TID 11/27/22 12/29/23 History sfahlqjkhvam-igtkyxde-wkonvk 1 tab PO DAILY 11/27/22 12/29/23 History tablet (Multivitamin 50 Plus tablet) aspirin 81 mg tablet,delayed 81 mg PO QAM #0 tabs 01/16/23 12/29/23 Rx release nitroglycerin 0.4 mg sublingual 0.4 mg sublingual UD PRN chest 01/16/23 12/29/23 Rx tablet (Nitrostat) pain #25 tabs carvedilol 3.125 mg tablet 3.125 mg PO BID #180 tabs 04/25/23 12/29/23 Rx Past Med/Surg History Medical History HTN (hypertension) Dyslipidemia Diabetes mellitus, type 2 CAD (coronary artery disease) Former tobacco use Asthma Surgical History History of heart artery stent 01/15/2023 S/P CABG x 4 (2019) History of coronary artery bypass graft April 2021 Social History Smoking Status: Former smoker Tobacco Type: Cigars Second Hand Exposure: No; Do You Dip or Chew Tobacco: No; Hx Alcohol Use: No Hx Substance Use: No Preferred Language: Hungarian Communication Ability: Effective 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 Beliefs That Will Affect Care: None Current Living Situation: Spouse current occupation: Retired/disability Feels Safe at Home: Yes Assistive Devices: None Review of Systems Review of Systems: See HPI above Physical Exam Physical Exam: General: no acute distress; pleasant affect; non-toxic appearing; well- nourished; cooperative; SpO2 97% on RA HEENT: normocephalic, atraumatic; no scleral icterus; PERRLA; vision and hearing grossly intact Neck: supple;; no lymphadenopathy; trachea midline Skin: warm, dry without signs of tenting; no cyanosis; no rashes, bruising, lesions, or erythema noted CV: chest wall NTP; no signs of rashes or vesicle formation along the chest wall; left-sided chest wall and rib cage NTP; tenderness to palpation just above the left nipple; RR, tachycardic at 114 bpm; S1/S2 normal; no murmurs/rubs/gallops; pulses intact and symmetric at radial, DP, and PT Lungs: Pain with deep breaths; symmetrical chest wall expansion; clear breath sounds across all lung powers w/o adventitious sounds; no wheezing ABD: Soft, NTP; BS present; no rebound/guarding; no ascites; no distention MSK: no tics or fasciculations; no edema noted in the LEs b/l, nonerythematous Neuro: A&Ox3; normal mood and affect; fluent speech; no focal deficits; sensation grossly intact in the LEs b/l Results & Data Results & Data Vital Signs (Past 12 Hours) Vital Signs Temp Pulse Pulse Resp BP BP Pulse Ox 12/29/23 17:00 108 H 20 142/87 H 97 12/29/23 15:59 107 H 24 138/77 12/29/23 15:57 37.3 C 12/29/23 15:07 107 H 18 122/81 99 12/29/23 13:42 96 H 22 97 12/29/23 13:42 97 H 18 99 12/29/23 13:28 96 H 12/29/23 13:06 36.4 C L 98 H 19 101/70 97 O2 Del Method 12/29/23 17:00 Room Air 12/29/23 15:59 12/29/23 15:57 12/29/23 15:07 Room Air 12/29/23 13:42 Room Air 12/29/23 13:42 Room Air 12/29/23 13:28 12/29/23 13:06 Room Air Laboratory Results Abnormal lab results 12/29/23 Range/Units 13:30 WBC 14.50 H (4.8-10.8) K/ul Hct 41.5 L (42.0-52.0) % Neut # (Auto) 10.23 H (1.40-6.50) K/uL [place] # (Auto) 1.06 H (0.11-0.59) K/uL Eos # (Auto) 0.59 H (0.00-0.50) K/uL Glucose 185 H (70-99(Fasting)) mg/dl Magnesium 1.6 L (1.7-2.4) mg/dl Diagnostic Findings Chest X-Ray 12/29/23 13:23 XR chest 1V portable HISTORY: Chest pain, nonspecific COMPARISON: Chest 01/15/2023. FINDINGS: No pneumothorax. No pleural effusions. The lungs are clear. The cardiac silhouette remains top normal in size. There are poststernotomy changes. No acute fractures. IMPRESSION: No acute process. ACT 112: Negative or not required by law. Electronically signed by: Sunil Klein M.D. 12/29/2023 1:46 PM Chest CTA 12/29/23 14:35 CHEST CTA for PULMONARY ARTERIES CT DOSE: 734.58 mGy.cm HISTORY: Shortness of breath. TECHNIQUE: Multiaxial CT images of the chest were performed following the intravenous administration of contrast to evaluate the pulmonary arteries. 3D/Maximal intensity projection images were also obtained. Sagittal and coronal reformations were also reviewed. A dose lowering technique was utilized adh ering to the principles of ALARA. COMPARISON STUDY: Chest 12/29/2023. FINDINGS: Normal caliber thoracic aorta with no evidence for a dissection. The heart is top normal in size. No pleural or pericardial effusions. Nondiagnostic evaluation of the majority of the segmental/subsegmental pulmonary arteries within the bilateral lower lobes due to the respiratory motion artifact. Otherwise, no filling defects within the remaining pulmonary arteries to suggest a pulmonary embolus. Limited views of the upper abdomen demonstrate a normal liver, spleen, and adrenal glands. The thyroid gland enhances normally. Normal esophagus. No mediastinal or hilar lymphadenopathy. No acute fractures. There are poststernotomy changes. The central airways are patent. No pneumothorax. There are few scattered small peripheral airspace opacities most pronounced within the left lung. Dominant focal opacity within the lingula on image 112 measures 17 mm. Some of these have a wedge-shaped appearance. IMPRESSION: 1. No definite evidence for a pulmonary embolus with limitations as described above. 2. A few scattered small peripheral airspace opacities within the lungs most pronounced on the left. These favor inflammatory/infectious change. Scattered pulmonary infarcts could also have a similar appearance in the setting of occult pulmonary emboli. Consider follow-up lower extremity venous Doppler for further evaluation. ACT 112: Negative or not required by law. Electronically signed by: Sunil Klein M.D. 12/29/2023 3:20 PM Venous Doppler Study 12/29/23 15:28 BILATERAL LOWER EXTREMITY VENOUS DOPPLER HISTORY: Abnormal chest CTA. Possible occult pulmonary emboli, pleuritic pain COMPARISON STUDY: None. FINDINGS: There is normal compressibility, flow, and augmentation within the left lower extremity deep venous system. The right common femoral and superficial femoral arteries are patent. The right popliteal vein is patent. However, there is thrombus identified within a branch of the popliteal vein which is 7 mm from the confluence and measures approximately 3 cm in length. This could represent a gastrocnemius vein or the lesser saphenous vein. Therefore, this could represent a small deep or superficial thrombus within the right calf. IMPRESSION: 1. No DVT within the left lower extremity. 2. The right popliteal vein is patent. However, there is thrombus identified within a branch of the popliteal vein which is 7 mm from the confluence and measures approximately 3 cm in length. This could represent a gastrocnemius vein or the lesser saphenous vein. Therefore, this could represent a small deep or superficial thrombus within the right calf. ACT 112: Negative or not required by law. Electronically signed by: Sunil Klein M.D. 12/29/2023 4:49 PM Code Status & VTE Plan Code Status Full code VTE Prophylaxis Plan VTE Prophylaxis will be ordered: Yes Supervising Physician Co-Signing Physician Notes Patient seen and examined, chart reviewed, case discussed with Sunil Castillo and I agree with the assessment and plan as above except as otherwise noted Labs and images reviewed 63-year-old male with chest pain on inspiration in his left chest. No leg swelling. Was concerned about his heart so presented for evaluation. His pain does not go down the shoulder and is worsened with deep breathing and cough but not on palpation. High sensitive troponin is normal x 2. Venous Dopplers are concerning for potential small versus superficial right calf thrombus, CTA is suboptimal. Patient is covered with heparin for potential PE with? DVT on Doppler; however given his fevers and chills with recent cough and leukocytosis suspect that he is having pleuritic pain with underlying pneumonia which is c overed as above. Agree with assessment and management as above at time of bedside evaluation lungs are clear chest wall is nontender to palpation but does endorse pain when breathing or coughing. PG Care Time/CCT Total # of Minutes Spent Total Time Spent with Patient: Total time spent is greater than 50% in coordination of care (as documented) at patient's floor/unit and/or counseling patient: Coding [place] [address] INT INP/OBS CARE 375MIN Patient Type Established History Comprehensive Exam Comprehensive Medical Decision Making High Complexity Diagnoses Pleuritic chest pain R07.81 Diabetes mellitus, type 2 E11.9 CAD (coronary artery disease) I25.10 Hypomagnesemia E83.42 Pneumonia J18.9 Laterality: left Lung location: unspecified part of lung Pneumonia type: due to unspecified organism DVT (deep venous thrombosis) I82.401 Affected thrombotic vein of extremity: unspecified vein of extremity Chronicity: acute DVT location: lower extremity Laterality: right (5) Pneumonia Laterality: left Lung location: unspecified part of lung Pneumonia type: due to unspecified organism Qualified Code(s): J18.9 - Pneumonia, unspecified org anism (6) DVT (deep venous thrombosis) Affected thrombotic vein of extremity: unspecified vein of extremity Chronicity: acute DVT location: lower extremity Laterality: right Qualified Code(s): I82.401 - Acute embolism and thrombosis of unspecified deep veins of right lower extremity
[2023-12-29] MEDS: KETOROLAC TROMETHAMINE 15 MG/ML VIAL IV ONE (17:41)
[2023-12-29] MEDS: SODIUM CHLORIDE 0.9% 1,000 ML IV ONE (17:42)
[2023-12-29] MEDS: ACETAMINOPHEN 500 MG TAB PO STA (17:42)
[2023-12-29] MEDS: HEPARIN SOD (PORCINE) 1000 UNIT/ML IV ONE (19:30)
[2023-12-29] MEDS: HEPARIN SODIUM/DEXTROSE 25,000 UNITS/500 ML BAG IV SCH (19:30)
[2023-12-29] MEDS: MoRPHine SULFATE 2 MG/ML CARP IV STA (21:25)
[2023-12-29] MEDS ORDERED: GLUCOSE 40% GEL 15 GM TUBE PO PRN (21:29)
[2023-12-29] MEDS ORDERED: NITROGLYCERIN SL 0.4 MG/TAB TAB SL PRN (21:29)
[2023-12-29] MEDS ORDERED: GLUCOSE 10 TAB/TUBE PO PRN (21:29)
[2023-12-29] MEDS ORDERED: ACETAMINOPHEN 325 MG TAB PO PRN (21:29)
[2023-12-29] MEDS ORDERED: DEXTROSE 50% 50 ML SYRINGE IV PRN (21:29)
[2023-12-29] MEDS ORDERED: ALBUTEROL HFA 8 GM INHALER INH PRN (21:29)
[2023-12-29] MEDS ORDERED: CARBOHYDRATES FOR HYPOGLYCEMIA PO PRN (21:29)
[2023-12-29] MEDS ORDERED: GLUCAGON FOR INJ 1 MG VIAL SQ PRN (21:29)
[2023-12-29] MEDS: Heparin IV Adult Wt-Based Standard w/ INITIAL Bolus Protocol IV STA (22:05)
[2023-12-29] MEDS: MAGNESIUM SULFATE / D5W 1 GM/100 ML BAG IV ONE (22:06)
[2023-12-29] MEDS: lisinopril 10 MG TAB PO SCH (22:25)
[2023-12-29] MEDS: carvediloL 3.125 MG TAB PO SCH (22:28)
[2023-12-29] MEDS: ROSUVASTATIN CALCIUM 20 MG TAB PO SCH (22:28)
[2023-12-29] MEDS: INSULIN ASPART PER UNIT CHARGE SC SCH (22:29)
[2023-12-29] MEDS: LANTUS PER UNIT CHARGE SQ SCH (22:31)
[2023-12-29] MEDS ORDERED: MoRPHine SULFATE 2 MG/ML CARP IV PRN (22:39)
[2023-12-29] MEDS: MoRPHine SULFATE 4 MG/ML 1 ML CARP\\VIAL IV PRN (23:37)
[2023-12-29] MEDS: LIDOCAINE 5% 1 PATCH TD SCH (23:39)
[2023-12-30] MEDS: ACETAMINOPHEN 500 MG TAB PO SCH (01:28)
[2023-12-30 01:57] LABS: Basophils # (auto) 0.06 K/uL (0.00-0.20); Basophils % (auto) 0.3 %; Eosinophils # (auto) 0.07 K/uL (0.00-0.50); Eosinophils % (auto) 0.4 %; Hematocrit (blood only) 38.2 % (42.0-52.0); Hemoglobin 12.7 g/dl (14.0-18.0); Lymphocytes % (auto) 10.1 %; Mean Corpuscular Hgb Conc 33.2 g/dL (32.0-36.0); Mean Corpuscular Volume 84.1 fL (80.0-100.0); Mean Platelet Volume 10.7 fL (9.4-12.4); Monocytes # (auto) 1.26 K/uL (0.11-0.59); Monocytes % (auto) 6.4 %; Neutrophils # (auto) 16.14 K/uL (1.40-6.50); Neutrophils % (auto) 81.8 %; Platelet Count 145 K/uL (130-400); RDW Coefficient of Variation 12.9 % (11.5-14.5); RDW Standard Deviation 38.9 fL (36.4-46.3); Red Blood Count 4.54 M/uL (4.70-6.10); White Blood Count 19.73 K/ul (4.8-10.8)
[2023-12-30 02:07] LABS: BUN Creatinine Ratio 12.1 (10-20); Calcium 8.3 mg/dl (8.6-10.3); Creatinine Clr Calc Pharmacy 61.4 ml/min; Est GFR (African American) 76.2 ml/min; Est GFR (Non-African American) 65.7 ml/min; Magnesium 1.9 mg/dl (1.7-2.4)
[2023-12-30 02:31] LABS: ANTI-Xa, UFH(UnfractionatedHep 0.74 IU/ml (0.3-0.7)
[2023-12-30] MEDS ORDERED: ACETAMINOPHEN 500 MG TAB PO SCH ×2 (06:00→14:00)
[2023-12-30] MEDS: PANTOprazole 40 MG TAB PO SCH (08:26)
[2023-12-30] MEDS: ASPIRIN 81 MG ECTAB PO SCH (08:26)
[2023-12-30] MEDS: CLOPIDOGREL BISULFATE 75 MG TAB PO SCH (08:26)
[2023-12-30] MEDS: SPIRONOLACTONE 12.5 MG TAB PO SCH (08:26)
--- NOTE | 2023-12-30 08:47 | Electrocardiogram Report ---
Test Reason : Blood Pressure : / mmHG Vent. Rate : 095 BPM Atrial Rate : 095 BPM P-R Int : 152 ms QRS Dur : 088 ms QT Int : 332 ms P-R-T Axes : 058 -32 014 degrees QTc Int : 417 ms Normal sinus rhythm Left axis deviation Nonspecific ST and T wave abnormality Abnormal ECG Confirmed by Adriano Hayes ([id number]) on 12/30/2023 8:47:00 AM Referred By: REFERRED SELF Confirmed By:Gilmer Hayes
[2023-12-30] MEDS ORDERED: LIDOCAINE 5% 1 PATCH TD SCH (09:00)
--- NOTE | 2023-12-30 09:00 | Electrocardiogram Report ---
Test Reason : Blood Pressure : / mmHG Vent. Rate : 111 BPM Atrial Rate : 111 BPM P-R Int : 158 ms QRS Dur : 086 ms QT Int : 340 ms P-R-T Axes : 069 000 009 degrees QTc Int : 462 ms Sinus tachycardia Nonspecific ST abnormality Abnormal ECG When compared with ECG of 29-DEC-2023 13:20, (unconfirmed) Non-specific change in ST segment in Inferior leads Nonspecific T wave abnormality no longer evident in Anterior leads Confirmed by Adriano Hayes ([id number]) on 12/30/2023 9:00:31 AM Referred By: REFERRED SELF Confirmed By:Gilmer Hayes
[2023-12-30 09:32] LABS: ANTI-Xa, UFH(UnfractionatedHep 0.59 IU/ml (0.3-0.7)
--- NOTE | 2023-12-30 13:04 | Hospitalist Progress Note ---
Date of Service December 30, 2023 Assessment & Plan (1) Pleuritic chest pain: Plan: Suspected viral etiology. Chest CTA negative for PE and D-dimer is negative. Heparin drip has been discontinued. Solu-Medrol and colchicine started. (2) Viral illness: Plan: Suspected cause of left-sided pleuritic chest pain. Symptomatic treatment. No evidence of bacterial pneumonia (3) Diabetes mellitus, type 2: Plan: Last A1c at 7.2% on 12/23/2023. ADA diet. Metformin is on hold. Sliding scale coverage. (4) CAD (coronary artery disease): Plan: Hx of CABGx4 in 05/11/2020. Stabl. Continue Aspirin/Plavix (5) Hypomagnesemia: Plan: Corrected with replacement. Serial labs (6) Pneumonia: Plan: Ruled out. Chest x-ray is clear (7) DVT (deep venous thrombosis): Plan: Abnormal right lower extremity venous Doppler evaluation with possible nonocclusive thrombus. In my opinion, this does not warrant systemic anticoagulation therapy where the risk far outweighs any potential benefit. Plan Hopefully home tomorrowDecember 30 Admission and Anticipated Discharge Date Admission Date: December 29, 2023 Subjective Alert and oriented. No distress. He has left pleuritic type chest discomfort with deep breathing. Although the right lower extremity venous Doppler suggest the possibility of a nonocclusive thrombus his D-dimer is negative. I highly doubt his current symptoms are from pulmonary emboli. Chest CTA is negative for PE. Heparin drip has been discontinued. Anti-inflammatory medication including Solu-Medrol and colchicine have been started for suspected viral induced pleuritic chest pain. Hopefully he can go home tomorrow, December 30 Review of Systems 2 Review of Systems: Constitutional-no fever or chills ENT-no blurred vision, no double vision, no epistaxis, no sore throat Respiratory-no cough, no wheezing, no shortness of breath. Inspiratory left- sided pleuritic type chest pain Cardiac-no palpitations, no chest pain, no syncope GI-no nausea, vomiting, diarrhea, melena, hematochezia -no urinary retention, no urinary incontinence, no dysuria, no hematuria Musculoskeletal-no joint pain, no muscle tenderness Skin-no bruising, no rashes, no pruritus Neuro-no isolated weakness, no paresthesia, no weakness Psych-no depression, no anxiety Physical Exam 2 Physical Exam: General-alert and oriented x3, no fever, no chills HEENT-head atraumatic and normocephalic, pupils equal and reactive to light, extraocular muscles intact Neck-no lymphadenopathy or thyromegaly, trachea midline Chest-clear to auscultation percussion. No audible friction rub. No rales, wheezing or rhonchi Cardiac-regular rate and rhythm, normal S1 and S2 Abdomen-normal bowel sounds, nontender, no hepatosplenomegaly Extremities-no cyanosis, clubbing, or edema Neuro-cranial nerves II through XII intact, motor and sensory function within normal limits, strength symmetrical, no focal deficits Psych-normal affect, normal mood Results & Data Results & Data Vital Signs (Past 12 Hours) Vital Signs Temp Pulse Pulse Resp BP BP Pulse Ox 12/30/23 11:37 37.0 C 98 H 18 97/62 L 94 12/30/23 08:00 102 H 12/30/23 08:00 12/30/23 07:39 37.1 C 111 H 18 108/67 95 12/30/23 06:15 100/65 12/30/23 03:28 37.4 C 109 H 20 87/54 L 93 O2 Del Method 12/30/23 11:37 Room Air 12/30/23 08:00 12/30/23 08:00 Room Air 12/30/23 07:39 Room Air 12/30/23 06:15 12/30/23 03:28 Room Air Laboratory Results 12/30/23 01:27 12/30/23 01:27 PG Care Time/CCT Total # of Minutes Spent Total Time Spent with Patient: Total time spent is greater than 50% in coordination of care (as documented) at patient's floor/unit and/or counseling patient: Coding Level of Care Code 83408 SUB INP/OBS CARE 3/50MIN Diagnoses Pleuritic chest pain R07.81 Viral illness B34.9 Diabetes mellitus, type 2 E11.9 CAD (coronary artery disease) I25.10 Hypomagnesemia E83.42 Pneumonia J18.9 Laterality: left Lung location: unspecified part of lung Pneumonia type: due to unspecified organism DVT (deep venous thrombosis) I82.401 Affected thrombotic vein of extremity: unspecified vein of extremity Chronicity: acute DVT location: lower extremity Laterality: right (6) Pneumonia Laterality: left Lung location: unspecified part of lung Pneumonia type: due to unspecified organism Qualified Code(s): J18.9 - Pneumonia, unspecified organism (7) DVT (deep venous thrombosis) Affected thrombotic vein of extremity: unspecified vein of extremity C hronicity: acute DVT location: lower extremity Laterality: right Qualified Code(s): I82.401 - Acute embolism and thrombosis of unspecified deep veins of right lower extremity
[2023-12-30] MEDS: methylPREDNISolone 40 MG in SYRINGE 0 ML IV SCH (13:13)
[2023-12-30] MEDS: COLCHICINE 0.6 MG TAB PO SCH (13:13)
[2023-12-30] MEDS ORDERED: cefTRIAXone SODIUM 2,000 MG in DEXTROSE 5 % MINI-B 50 ML IV SCH (16:00)
[2023-12-31 07:28] LABS: Basophils # (auto) 0.06 K/uL (0.00-0.20); Basophils % (auto) 0.3 %; Hematocrit (blood only) 38.5 % (42.0-52.0); Hemoglobin 12.8 g/dl (14.0-18.0); Immature Granulocytes # (auto) 0.26 K/uL (0.01-0.20); Immature Granulocytes % (auto) 1.3 %; Lymphocytes # (auto) 1.67 K/uL (1.20-3.40); Lymphocytes % (auto) 8.3 %; Mean Corpuscular Hemoglobin 27.8 pg (25.0-34.0); Mean Corpuscular Hgb Conc 33.2 g/dL (32.0-36.0); Mean Corpuscular Volume 83.7 fL (80.0-100.0); Mean Platelet Volume 10.7 fL (9.4-12.4); Monocytes # (auto) 0.49 K/uL (0.11-0.59); Monocytes % (auto) 2.4 %; Neutrophils # (auto) 17.73 K/uL (1.40-6.50); Neutrophils % (auto) 87.7 %; Platelet Count 157 K/uL (130-400); RDW Coefficient of Variation 13.1 % (11.5-14.5); RDW Standard Deviation 39.9 fL (36.4-46.3); White Blood Count 20.21 K/ul (4.8-10.8)
[2023-12-31 07:51] LABS: Calcium 8.6 mg/dl (8.6-10.3); Creatinine Clr Calc Pharmacy 59.4 ml/min; Est GFR (African American) 73.1 ml/min; Est GFR (Non-African American) 63.1 ml/min; Potassium 3.9 mmol/L (3.5-5.1)
[2023-12-31] MEDS: INSULIN ASPART PER UNIT CHARGE SC STA (11:39)
--- NOTE | 2023-12-31 12:04 | Discharge Summary ---
Date of Service December 31, 2023 Admission HPI Per Admitting Provider Ramy is a 63-year-old male with PMH of orthostatic hypotension, unstable angina, NSTEMI (in 01/2023), restrictive lung disease, and diabetic neuropathy. Patient developed left-sided chest pain the morning of 12/28 around 1000. He reports that has been fairly constant, and is worse with deep breaths. He rates the pain 7/10 in the ED, and describes it as a sharp pain worse with deep breathing, and when sitting fully upright. He also endorses occasional chest tightness/spasms. Patient took nitro x 2 at home, but this did not help the pain. Of note, while in the ED the patient developed chills over a 3-hour per iod. Denies any fevers at home. Denies radiation down the left arm or to the left jaw, but does note that the left chest pain occasionally wraps around the left rib cage/flank towards his back. He does have a history of AK, but he reports that this does not feel like prior episodes of AK which usually present as feelings of indigestion that worsen. Patient does take both aspirin and Plavix daily. He notes he was recently on a antibiotic for diarrhea that he finished up. No recent change in medications. Patient took all of his regular morning medications today. He denies history of blood clots, DVT/PE, or shingles; notes that he received shots for both shingles and pneumonia. No supple and oxygen at home. No sick contacts. History of kidney stones. While the patient denies chest palpitations, he does note that every so often he gets a "weird beat now and then". He denies smoking, tobacco use, and alcohol use. No recent falls, injuries to the chest wall, or exertional strain. Patient is tachycardic at 114 bpm, and hypertensive at 142/87 at admission SpO2 97% on RA ED course: NSS 1000 mL IV Tylenol 1000 mg p.o. Toradol 10 mg IV Magnesium sulfate 1 g IV Rocephin 2000 mg IV ROS: Patient endorses pleuritic CP, chills in the ED, shaking, dizziness when standing, recent course of diarrhea Patient denies fever, sweating, headache, chest pain, left arm or jaw pain/pressure, cough, SOB, hemoptysis, abdominal pain, N/V, burning with urination, blood in the urine or stool, or numbness/tingling/erythema/swelling in the legs. Principal Diagnosis Pleurisy of suspected viral etiology Discharge Exam General-alert and oriented x3, no fever, no chills HEENT-head atraumatic and normocephalic, pupils equal and reactive to light, extraocular muscles intact Neck-no lymphadenopathy or thyromegaly, trachea midline Chest-clear to auscultation percussion. No audible friction rub. No rales, wheezing or rhonchi Cardiac-regular rate and rhythm, normal S1 and S2 Abdomen-normal bowel sounds, nontender, no hepatosplenomegaly Extremities-no cyanosis, clubbing, or edema Neuro-cranial nerves II through XII intact, motor and sensory function within normal limits, strength symmetrical, no focal deficits Psych-normal affect, normal mood Discharge Data Allergies Allergy/AdvReac Type Severity Reaction Status Date / Time atorvastatin [From Lipitor] Allergy Verified 12/26/23 15:29 mold Allergy Verified 12/26/23 15:29 cedarwood AdvReac Intermediate Difficulty Verified 12/26/23 15:29 Breathing Consultations 12/29/23 17:33 ED Decision to Admit Stat Ordered Studies 12/29/23 14:35 CT angio chest PE protocol Stat 12/29/23 15:28 US venous doppler LE Stat Hospital Course (1) Pleuritic chest pain: Suspected viral etiology. Chest CTA negative for PE and D-dimer is negative. Heparin drip has been discontinued. Solu-Medrol and colchicine have helped considerably with his symptoms. Unfortunately, his glucose went up quite a bit with the Solu-Medrol which has been discontinued. Will continue colchicine for 1 week at discharge. (2) Viral illness: Suspected cause of left-sided pleuritic chest pain. Symptomatic treatment. No evidence of bacterial pneumonia. Much improved with the Solu-Medrol and colchicine (3) Diabetes mellitus, type 2: Last A1c at 7.2% on 12/23/2023. ADA diet. Metformin is on hold. Sliding scale coverage. Unfortunately, the parenteral steroid therapy causes glucose to go up quite a bit. Solu-Medrol has been discontinued (4) CAD (coronary artery disease): Hx of CABGx4 in 05/11/2020. Stabl. Continue Aspirin/Plavix (5) Hypomagnesemia: Corrected with replacement. Serial labs (6) Pneumonia: Ruled out. Chest x-ray is clear (7) DVT (deep venous thrombosis): Abnormal right lower extremity venous Doppler evaluation with possible nonocclusive thrombus. In my opinion, this does not warrant systemic anticoagulation therapy where the risk far outweighs any potential benefit. Plan Home today, December 30, on colchicine for 1 more week. Total Time Total Time Spent Total Time Spent (In Minutes): 45 minutes Discharge Plan Discharge Items Patient Disposition: Home - Self-Care Reason For Visit: LEFT-SIDED PLEURITIC CP Discharge Diagnosis: Pleuritic chest pain of suspected viral etiology Condition on Discharge: Good Activity: Resume your previous activity Non-emergency contact: Primary Care Provider Call non-emergency contact if: your symptoms worsen Follow-up/Referrals: Obey Castano [Primary Care Provider] - Diet: Carb Consistent or DM2 and Heart Healthy Addtl Attending Provider Instructions: Take colchicine twice daily for 1 week then stop. All other medications remain the same Pending Studies at Discharge: No Stand-Alone Forms: [facility], Sm[facility] Cessation Medications and DC Order Prescriptions: New colchicine [Colcrys] 0.6 mg Tablet 0.6 mg PO BID Qty: 14 0RF Continued melatonin 10 mg capsule 10 mg PO HS PRN (Reason: Sleep) Ligaplex See Rx Instructions .ROUTE .COMPLEX Rx Instructions: as directed carvedilol 3.125 mg tablet 3.125 mg PO BID Qty: 180 2RF Rx Instructions: must administer with a meal/food clopidogrel [Plavix] 75 mg tablet 75 mg PO DAILY omeprazole 20 mg capsule,delayed release(DR/EC) 20 mg PO DAILY rosuvastatin [Crestor] 20 mg tablet 20 mg PO HS spironolactone 25 mg tablet 12.5 mg PO DAILY metformin 500 mg tablet 500 mg PO TID albuterol sulfate 90 mcg/actuation HFA aerosol inhaler 2 puff inhalation Q6H PRN (Reason: Wheezing) Multivitamin 50 Plus Tablet 1 tab PO DAILY lisinopril 10 mg tablet 10 mg PO HS aspirin 81 mg Tablet,Delayed Release (Dr/Ec) 81 mg PO QAM Qty: 0 0RF nitroglycerin [Nitrostat] 0.4 mg Tablet, Sublingual 0.4 mg sublingual UD PRN (Reason: chest pain) Qty: 25 0RF Discharge Orders: Discharge Order (Routine); Ordered 12/31/23 Ordered By: Fidel Rivera Admission Data Admit Date/Time: 12/29/23 18:30 Attending Provider: Fidel Rivera Admit Provider: Jonathan Booker Primary Care Provider: Obey Castano Other Providers: Jonathan Booker Coding Level of Care Code 16764 INP/OBS DISCH >30 MIN Diagnoses Pleuritic chest pain R07.81 Viral illness B34.9 Diabetes mellitus, type 2 E11.9 CAD (coronary artery disease) I25.10 Hypomagnesemia E83.42 Pneumonia J18.9 Laterality: left Lung location: unspecified part of lung Pneumonia type: due to unspecified organism DVT (deep venous thrombosis) I82.401 Affected thrombotic vein of extremity: unspecified vein of extremity Chronicity: acute DVT location: lower extremity Laterality: right
== END 2023-12-31 14:21 | disposition home or self-care (01) | DRG 194 ==
LOC: ED 13:03 → 2S 18:30 → SUATTDRO 18:30 → 2S 21:15